=== PATIENT | male | born 1935 | race Caucasian/White ===

== ENCOUNTER 2020-02-20 16:09 | Inpatient (IN) | payer MEDICARE, MEDICAID ==
[~2020-02-20] VITALS: Ht 170.2 cm; Wt 60.3 kg
--- NOTE | 2020-02-20 16:28 | Emergency Room Report ---
History of Present Illness General Chief Complaint: Upper Respiratory Illness Source: Patient Present Illness HPI Is an 84-year-old male sent in from nursing facility after increased fever and difficulty with breathing. Patient reportedly had missed dialysis today. Prior history of end-stage renal disease. He was noted to have some increased confusion. Previous history of dialysis and is normally dialyzed Monday. Patient was sent in from assisted living after increased congestion. He is unsure why is at the hospital. Reportedly at a facility with recent cases of coronavirus. Denies any vomiting. Denies any diarrhea. Denies any current shortness of breath. Reports having generalized weakness and difficulty with walking at baseline. Allergies: Coded Allergies: LATEX (Verified Allergy, Unknown, 02/20/20) Uncoded Allergies: NSAID (Allergy, Unknown, 02/20/20) COVID-19 Screening Contact w/high risk pt: No Recent Travel to affected area: No Experienced COVID-19 symptoms?: No Patient History Past Medical History: see triage record Reviewed Nursing Documentation: PMH: Agreed; PSxH: Agreed Nursing Documentation-PMH Past Medical History: No History, Except For Hx Hypertension: Yes Review of Systems All Other Systems: negative except mentioned in HPI Physical Exam Vital Signs Date Time Temp Pulse Resp B/P (MAP) Pulse Ox O2 Delivery O2 Flow Rate FiO2 02/20/20 16:10 70 22 132/66 (88) 96 Room Air Sp02 EP Interpretation: reviewed, normal General Appearance: normal inspection, well appearing, alert Head: normocephalic, atraumatic ENT: normal ENT inspection, hearing grossly normal, normal voice Neck: normal inspection, full range of motion, supple, no bony tend Respiratory: normal inspection, lungs clear, normal breath sounds, no respiratory distress, no retraction, no wheezing Cardiovascular #1: regular rate, rhythm, no edema Gastrointestinal: normal inspection, normal bowel sounds, non tender, soft, no guarding, no hernia Genitourinary: no CVA tenderness Musculoskeletal: normal inspection, back normal, normal range of motion Neurologic: alert, motor strength/tone normal, responsive, speech normal, normal inspection Psychiatric: normal inspection, judgement/insight normal, mood/affect normal Medical Decision Making Diagnostic Impression: Primary Impression: Suspected 2019 novel coronavirus infection Additional Impressions: ESRD (end stage renal disease) Pacemaker ER Course Patient presented for cough and difficulty with breathing. Differential diagnosis include was not limited to pneumonia, fluid overload, sepsis among others. Because of complexity of patient's case laboratory tests and imaging studies were ordered. Patient was noted to have recent fever as well as nonproductive cough given current symptomatology patient will be admitted to the hospital for further evaluation and treatment. Dr. Tiffanie Jim was contacted for inpatient management Labs Test 02/20/20 17:00 White Blood Count 12.7 K/UL (4.8-10.8) Red Blood Count 4.15 M/UL (4.70-6.10) Hemoglobin 11.9 G/DL (14.2-18.0) Hematocrit 39.2 % (42.0-52.0) Mean Corpuscular Volume 94 FL (80-99) Mean Corpuscular Hemoglobin 28.7 PG (27.0-31.0) Mean Corpuscular Hemoglobin Concent 30.4 G/DL (32.0-36.0) Red Cell Distribution Width 15.7 % (11.6-14.8) Platelet Count 310 K/UL (150-450) Mean Platelet Volume 7.9 FL (6.5-10.1) Neutrophils (%) (Auto) 78.0 % (45.0-75.0) Lymphocytes (%) (Auto) 9.6 % (20.0-45.0) Monocytes (%) (Auto) 8.1 % (1.0-10.0) Eosinophils (%) (Auto) 2.8 % (0.0-3.0) Basophils (%) (Auto) 1.5 % (0.0-2.0) Sodium Level 134 MMOL/L (136-145) Potassium Level 4.5 MMOL/L (3.5-5.1) Chloride Level 99 MMOL/L (98-107) Carbon Dioxide Level 24 MMOL/L (21-32) Anion Gap 11 mmol/L (5-15) Blood Urea Nitrogen 53 mg/dL (7-18) Creatinine 7.4 MG/DL (0.55-1.30) Estimat Glomerular Filtration Rate 7.1 mL/min (>60) Glucose Level 165 MG/DL (74-106) Lactic Acid Level 1.20 mmol/L (0.4-2.0) Calcium Level 9.0 MG/DL (8.5-10.1) Total Bilirubin 0.3 MG/DL (0.2-1.0) Aspartate Amino Transf (AST/SGOT) 32 U/L (15-37) Alanine Aminotransferase (ALT/SGPT) 35 U/L (12-78) Alkaline Phosphatase 103 U/L (46-116) Troponin I 0.022 ng/mL (0.000-0.056) Pro-B-Type Natriuretic Peptide 60480 pg/mL (0-125) Total Protein 7.0 G/DL (6.4-8.2) Albumin 3.1 G/DL (3.4-5.0) Globulin 3.9 g/dL Albumin/Globulin Ratio 0.8 (1.0-2.7) Last Vital Signs Date Time Temp Pulse Resp B/P (MAP) Pulse Ox O2 Delivery O2 Flow Rate FiO2 02/20/20 16:10 70 22 132/66 (88) 96 Room Air Status: unchanged Disposition: ADMITTED INPATIENT Condition: Serious Serafin Bartholomew MD Feb 20, 2020 16:28
[2020-02-20 16:32] VITALS: BP 130/70
--- NOTE | 2020-02-20 16:32 | NUR ---
ED Nurse Note: PT brought in by JON Coronado from [facility] assisted living side for c/o fatigue and cough, sob x 3 days. sp02 is 99% in RA. Temp is 98.4. pt has hemodyalisis T//SAT. Pt did not receive dialysis today. AV shunt to left upper arm. pt is alert x3, hard of hearing.
[2020-02-20 17:07] VITALS: BP 155/83
--- NOTE | 2020-02-20 17:08 | NUR ---
ED Nurse Note: blood sample, swab sample collected and sent to lab
--- NOTE | 2020-02-20 17:11 | NUR ---
ED Nurse Note: pt stated he no longer urinate. ERMD made aware.
[2020-02-20 17:39] LABS: BASOPHILS % (AUTO) 1.5 % (0.0-2.0); EOSINOPHILS % (AUTO) 2.8 % (0.0-3.0); HEMATOCRIT 39.2 % (42.0-52.0); HEMOGLOBIN 11.9 G/DL (14.2-18.0); LYMPHOCYTES % (AUTO) 9.6 % (20.0-45.0); MEAN CORPUSCULAR VOLUME 94 FL (80-99); MONOCYTES % (AUTO) 8.1 % (1.0-10.0); PLATELET COUNT 310 K/UL (150-450); RED BLOOD COUNT 4.15 M/UL (4.70-6.10); RED CELL DISTRIBUTION WIDTH 15.7 % (11.6-14.8); WHITE BLOOD COUNT 12.7 K/UL (4.8-10.8)
--- NOTE | 2020-02-20 17:44 | NUR ---
Arianne joel in EDM - 02/20/20 at 1745 by ZACHARY ED Nurse Note: x ray taken at bedside.
--- NOTE | 2020-02-20 17:45 | NUR ---
ED Nurse Note: x ray taken at bedside.
[2020-02-20 17:52] LABS: ANION GAP 11 mmol/L (5-15); BLOOD UREA NITROGEN 53 mg/dL (7-18); CARBON DIOXIDE 24 MMOL/L (21-32); CHLORIDE 99 MMOL/L (98-107); CREATININE 7.4 MG/DL (0.55-1.30); POTASSIUM 4.5 MMOL/L (3.5-5.1); SODIUM 134 MMOL/L (136-145)
[2020-02-20 18:03] LABS: ALANINE AMINOTRANSFERASE 35 U/L (12-78); ALBUMIN 3.1 G/DL (3.4-5.0); ALBUMIN/GLOBULIN RATIO 0.8 (1.0-2.7); ALKALINE PHOSPHATASE 103 U/L (46-116); ASPARTATE AMINO TRANSFERASE 32 U/L (15-37); BILIRUBIN,TOTAL 0.3 MG/DL (0.2-1.0)
[2020-02-20 19:12] VITALS: BP 142/75
--- NOTE | 2020-02-20 19:12 | NUR ---
ED Nurse Note: pt resting in bed, no acute distress is noted.vss as documented
--- NOTE | 2020-02-20 20:35 | NUR ---
ED Nurse Note: pt taken to CT
--- NOTE | 2020-02-20 20:45 | NUR ---
ED Nurse Note: PT returned back from CT. Report given to TOMMY Granado. endorsed plan of care.
--- NOTE | 2020-02-20 20:46 | NUR ---
ED Nurse Note: Patient resting comfortably with no s/s of acute distress. will continue to monitor for admission and transport to the floor.
--- NOTE | 2020-02-20 20:47 | History and Physical ---
History of Present Illness General Reason for Hospitalization: Upper Respiratory Illness Present Illness HPI 84-year-old male with PMH of ESRD on HD TTS, Parkinson's disease, HTN, ? bradycardia s/p PPM, patient poor historian, history obtained via patient and patient's , Bettye. Patient currently resides at [facility], was noted by to be more confused this a.m., with fevers of 100.5 and cough at his [facility] for which he was stent to [facility] for COVID rule out. Patient apparently missed his dialysis today due to his fever. Per , patient had recent tooth infection which was treated with penicillin about a week ago. Upon exam with patient, patient AAO x2 (person and time), patient denies any F/C, N/V, CP, SOB , abd pain at this time. On admission, elevated WBCs, RR 22, BNP 10,000. Per discussion w/ER physician, pt had exposure of COVID at facility. Patient admitted for further treatment and evaluation. 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 Allergies: Coded Allergies: LATEX (Verified Allergy, Unknown, 02/20/20) Uncoded Allergies: NSAID (Allergy, Unknown, 02/20/20) COVID-19 Screening Contact w/high risk pt: No Recent Travel to affected area: No Experienced COVID-19 symptoms?: No COVID-19 symptoms experienced: Fever (T>100.4F or >38C), Cough Patient History Limited by: age, medical condition History Provided By: Patient, Family Member, Significant Other Healthcare decision maker Resuscitation status Advanced Directive on File Review of Systems Constitutional: Denies: no symptoms, see HPI, chills, sweats, fever, malaise, weakness, other Eye: Denies: no symptoms, see HPI, eye pain, blurred vision, tearing, double vision, nose pain, nose congestion, acuity changes, discharge, other ENT: Denies: no symptoms, see HPI, ear pain, ear discharge, nose pain, nose congestion, throat pain, throat swelling, mouth pain, hearing loss, nasal discharge, other Respiratory: Denies: no symptoms, see HPI, cough, orthopnea, shortness of breath, stridor, wheezing, SLOAN, sputum, other Cardiovascular: Denies: no symptoms, see HPI, chest pain, edema, palpitations, syncope, PND, other Gastrointestinal: Denies: no symptoms, see HPI, abdominal pain, constipation, diarrhea, nausea, vomiting, melena, hematemesis, other Genitourinary: Denies: no symptoms, see HPI, discharge, dysuria, frequency, hematuria, pain, retention, incontinence, urgency, vag bleed/dc, other Musculoskeletal: Denies: no symptoms, see HPI, back pain, gout, joint pain, joint swelling, muscle pain, muscle stiffness, other Endocrine: Denies: no symptoms, see HPI, excessive sweating, flushing, intolerance to temperature, increased thirst, increased urine, unexplained weight loss, other Physical Exam Physical Exam Narrative General: NAD, A&O x 2 (person and time) HEENT: NCAT, EOMi, MMM CV: RRR, 2/6 systolic murmur Pulm: CTAB, No wheezes, rhonchi, or rales, no accessory muscle usage or conversational dyspnea GI: Soft, nontender, nondistended, bowel sounds present Neuro: CN 2-12 grossly intact bilaterally, moves limbs spontaneously Ext: No lower extremity edema bilaterally Skin: no rashes lesions or ulcers Msk: Joints symmetrical in upper extremity and lower extremity bilaterally, no joint swelling. Last 24 Hour Vital Signs Date Time Temp Pulse Resp B/P (MAP) Pulse Ox O2 Delivery O2 Flow Rate FiO2 02/20/20 19:12 98.6 71 19 142/75 99 Room Air 02/20/20 17:07 155/83 02/20/20 16:32 98.4 75 22 130/70 99 Room Air 02/20/20 16:32 75 22 Room Air 02/20/20 16:10 70 22 132/66 (88) 96 Room Air Laboratory Tests Test 02/20/20 17:00 White Blood Count 12.7 K/UL (4.8-10.8) H Red Blood Count 4.15 M/UL (4.70-6.10) L Hemoglobin 11.9 G/DL (14.2-18.0) L Hematocrit 39.2 % (42.0-52.0) L Mean Corpuscular Volume 94 FL (80-99) Mean Corpuscular Hemoglobin 28.7 PG (27.0-31.0) Mean Corpuscular Hemoglobin Concent 30.4 G/DL (32.0-36.0) L Red Cell Distribution Width 15.7 % (11.6-14.8) H Platelet Count 310 K/UL (150-450) Mean Platelet Volume 7.9 FL (6.5-10.1) Neutrophils (%) (Auto) 78.0 % (45.0-75.0) H Lymphocytes (%) (Auto) 9.6 % (20.0-45.0) L Monocytes (%) (Auto) 8.1 % (1.0-10.0) Eosinophils (%) (Auto) 2.8 % (0.0-3.0) Basophils (%) (Auto) 1.5 % (0.0-2.0) D-Dimer 1.75 mg/L FEU (0.00-0.49) H Sodium Level 134 MMOL/L (136-145) L Potassium Level 4.5 MMOL/L (3.5-5.1) Chloride Level 99 MMOL/L (98-107) Carbon Dioxide Level 24 MMOL/L (21-32) Anion Gap 11 mmol/L (5-15) Blood Urea Nitrogen 53 mg/dL (7-18) H Creatinine 7.4 MG/DL (0.55-1.30) H Estimat Glomerular Filtration Rate 7.1 mL/min (>60) Glucose Level 165 MG/DL (74-106) H Lactic Acid Level 1.20 mmol/L (0.4-2.0) Calcium Level 9.0 MG/DL (8.5-10.1) Total Bilirubin 0.3 MG/DL (0.2-1.0) Aspartate Amino Transf (AST/SGOT) 32 U/L (15-37) Alanine Aminotransferase (ALT/SGPT) 35 U/L (12-78) Alkaline Phosphatase 103 U/L (46-116) Troponin I 0.022 ng/mL (0.000-0.056) Pro-B-Type Natriuretic Peptide 62964 pg/mL (0-125) H Total Protein 7.0 G/DL (6.4-8.2) Albumin 3.1 G/DL (3.4-5.0) L Globulin 3.9 g/dL Albumin/Globulin Ratio 0.8 (1.0-2.7) L Microbiology Date/Time Source Procedure Growth Status 02/20/20 19:00 Nasal Nares - Final Complete 02/20/20 19:00 Nasal Nares - Final Complete Height (Feet): 5 Height (Inches): 7.00 Weight (Pounds): 160 Medications Current Medications Medications (Trade) Dose Ordered Sig/Josefina Route PRN Reason Start Time Stop Time Status Last Admin Dose Admin Dextrose (Dextrose 50%) 25 ml Q30M PRN IV Hypoglycemia 02/20/20 19:00 05/20/20 18:59 Dextrose (Dextrose 50%) 50 ml Q30M PRN IV Hypoglycemia 02/20/20 19:00 05/20/20 18:59 Heparin Sodium (Porcine) (Heparin 5000 units/ml) 5,000 units EVERY 12 HOURS SUBQ 02/20/20 21:00 04/05/20 20:59 Assessment/Plan Assessment/Plan: 84-year-old male with PMH of ESRD on HD TTS, Parkinson's disease, HTN, ? bradycardia s/p PPM, admitted for cough/fevers 100.5 at [facility], missed HD today, here for COVID r/o, sepsis work up. Possible COVID exposure at [facility]. #Sepsis #Fevers #Cough #Possible COVID #Acute Metabolic Encephalopathy #elevated D-dimer -admit to tele, droplet precautions -possible 2/2 uremia from missed HD, or infectious causes -WBC 12.7, RR 22, CXR w/ patchy interstitial infiltrates -BNP elevated, 10,733 -Trop 0.022 -COVID pending -obtain CT head -Check TSH -BCx, UCx, SCx pending -elevated d-dimer, may be multifactorial, pt not hypoxic, 99% on RA, will obtain b/l US LE -ID, Dr. Villa, consulted, d/w ID, will start on Plaquenil and azithro -Pulm, Dr. Mendoza consulted #ESRD on HD TTS #Elevated BNP likely 2/2 missed HD -Nephro, Dr. Jim, consulted for HD recs #s/p PPM #elevated BNP likely 2/2 to above #HTN #?h/o afib -cont. to monitor -cont. home amlodipine 5 mg -cont. home amiodarone -Cardio consulted, recs appreciated #Hypothyroidism -Check TSH -cont. home meds, levothyroxine 50 #BPH -cont. home finasteride #Parkinsons Dx #Depression -holding home escitalopram for now -pt not on any meds for PD per medication review -neurology consulted Time spent on encounter: 70 mins, >50% on counseling, coordination of care. Additional 30 mins spent with chart review and family counseling. Spoke w/, Bettye Harden , POC, answered all questions to her satisfaction. Time of note doesn't reflect time of encounter. Demarcus Cottrell M.D. Feb 20, 2020 20:47
[2020-02-20 20:56] VITALS: BP 138/80
--- NOTE | 2020-02-20 21:11 | NUR ---
ED Nurse Note: Jovanelmo went down for CT with echocardiography radiology technologist, will continue to nmonitor for return.
--- NOTE | 2020-02-20 21:21 | Infectious Diseases Prog Note ---
Assessment/Plan Assessment/Plan Full consult dictated: A) 1) possible covid-19 infection 2) pna, sepsis, leukocytosis, hx fevers 3) pmh noted 4) allergies - nkda P) 1) zosyn, vancomycin, hydroxychloroquine 2) azithromycin if QTc ok 3) f/u on covid-19 testing, cultures, labs and imaging 4) thank you Subjective Allergies: Coded Allergies: LATEX (Verified Allergy, Unknown, 02/20/20) Uncoded Allergies: NSAID (Allergy, Unknown, 02/20/20) Objective Vital Signs Last 24 Hour Vital Signs Date Time Temp Pulse Resp B/P (MAP) Pulse Ox O2 Delivery O2 Flow Rate FiO2 02/20/20 20:56 98.6 78 20 138/80 98 Room Air 02/20/20 19:12 98.6 71 19 142/75 99 Room Air 02/20/20 17:07 155/83 02/20/20 16:32 98.4 75 22 130/70 99 Room Air 02/20/20 16:32 75 22 Room Air 02/20/20 16:10 70 22 132/66 (88) 96 Room Air Height (Feet): 5 Height (Inches): 7.00 Weight (Pounds): 160 Microbiology Date/Time Source Procedure Growth Status 02/20/20 19:00 Nasal Nares - Final Complete 02/20/20 19:00 Nasal Nares - Final Complete Laboratory Tests Test 02/20/20 17:00 White Blood Count 12.7 K/UL (4.8-10.8) H Red Blood Count 4.15 M/UL (4.70-6.10) L Hemoglobin 11.9 G/DL (14.2-18.0) L Hematocrit 39.2 % (42.0-52.0) L Mean Corpuscular Volume 94 FL (80-99) Mean Corpuscular Hemoglobin 28.7 PG (27.0-31.0) Mean Corpuscular Hemoglobin Concent 30.4 G/DL (32.0-36.0) L Red Cell Distribution Width 15.7 % (11.6-14.8) H Platelet Count 310 K/UL (150-450) Mean Platelet Volume 7.9 FL (6.5-10.1) Neutrophils (%) (Auto) 78.0 % (45.0-75.0) H Lymphocytes (%) (Auto) 9.6 % (20.0-45.0) L Monocytes (%) (Auto) 8.1 % (1.0-10.0) Eosinophils (%) (Auto) 2.8 % (0.0-3.0) Basophils (%) (Auto) 1.5 % (0.0-2.0) D-Dimer 1.75 mg/L FEU (0.00-0.49) H Sodium Level 134 MMOL/L (136-145) L Potassium Level 4.5 MMOL/L (3.5-5.1) Chloride Level 99 MMOL/L (98-107) Carbon Dioxide Level 24 MMOL/L (21-32) Anion Gap 11 mmol/L (5-15) Blood Urea Nitrogen 53 mg/dL (7-18) H Creatinine 7.4 MG/DL (0.55-1.30) H Estimat Glomerular Filtration Rate 7.1 mL/min (>60) Glucose Level 165 MG/DL (74-106) H Lactic Acid Level 1.20 mmol/L (0.4-2.0) Calcium Level 9.0 MG/DL (8.5-10.1) Total Bilirubin 0.3 MG/DL (0.2-1.0) Aspartate Amino Transf (AST/SGOT) 32 U/L (15-37) Alanine Aminotransferase (ALT/SGPT) 35 U/L (12-78) Alkaline Phosphatase 103 U/L (46-116) Troponin I 0.022 ng/mL (0.000-0.056) Pro-B-Type Natriuretic Peptide 27034 pg/mL (0-125) H Total Protein 7.0 G/DL (6.4-8.2) Albumin 3.1 G/DL (3.4-5.0) L Globulin 3.9 g/dL Albumin/Globulin Ratio 0.8 (1.0-2.7) L Current Medications Medications (Trade) Dose Ordered Sig/Josefina Route PRN Reason Start Time Stop Time Status Last Admin Dose Admin Amiodarone HCl (Cordarone) 200 mg BID ORAL 02/21/20 09:00 05/21/20 08:59 Amlodipine Besylate (Norvasc) 5 mg DAILY ORAL 02/21/20 09:00 03/22/20 08:59 Dextrose (Dextrose 50%) 25 ml Q30M PRN IV Hypoglycemia 02/20/20 19:00 05/20/20 18:59 Dextrose (Dextrose 50%) 50 ml Q30M PRN IV Hypoglycemia 02/20/20 19:00 05/20/20 18:59 Finasteride (Proscar) 5 mg DAILY ORAL 02/21/20 09:00 05/21/20 08:59 Heparin Sodium (Porcine) (Heparin 5000 units/ml) 5,000 units EVERY 12 HOURS SUBQ 02/20/20 21:00 04/05/20 20:59 Levothyroxine Sodium (Synthroid) 50 mcg DAILY IV 02/21/20 09:00 03/22/20 08:59 Sevelamer Carbonate (Renvela) 800 mg TID ORAL 02/21/20 09:00 05/21/20 08:59 Nataliya Villa MD Feb 20, 2020 21:21
--- NOTE | 2020-02-20 21:29 | Diagnostic Imaging Report ---
Indication: Headache Technique: Contiguous 5 mm thick transaxial imaging of the head obtained in a Siemens Sensation [address] scanner. Soft tissue and bone windows generated. Automatic Exposure Control was utilized. Total Dose length Product (DLP): 1028.9mGycm CT Dose Index Volume (CTDIvol): 53.4 mGy Comparison: none Findings: There is moderate prominence of the ventricles, basal cisterns, and cerebral sulci consistent with atrophy. Moderate, nonspecific, white matter hypoattenuation is noted throughout the brain consistent with chronic small vessel disease. There is no midline shift, edema, acute hemorrhage, mass effect, or abnormal extra-axial fluid collections. Bones are unremarkable. There is mucosal thickening within the visualized paranasal sinuses. Impression: No acute intracranial bleed, mass effect or edema. Moderate atrophy of the brain. Evidence of chronic small vessel disease involving white matter tracts. Sinusitis The CT scanner at [facility] is accredited by the [employer] and the scans are performed using dose optimization techniques as appropriate to a performed exam including Automatic Exposure control.
[2020-02-20] MEDS ORDERED: Vancomycin 1.5 GM in NS 275 ML IVPB ONE (22:00)
[2020-02-20] MEDS ORDERED: Zosyn 2.25gm in NS 110ML IVPB SCH (22:00)
--- NOTE | 2020-02-20 22:30 | NUR ---
ED Nurse Note: 1/2 ANTIBIOTICS HUNG. PATIENT REPORTS NO PAIN. WILL CONTINUE TO MONITOR FOR TRANSPORT TO FLOOR.
[2020-02-20] MEDS: Zosyn 2.25gm in NS 110ML IVPB SCH (22:33)
[2020-02-20 22:50] VITALS: BP 156/68
--- NOTE | 2020-02-20 22:52 | NUR ---
ED Nurse Note: REPORT CALLED IN TO [facility].
[2020-02-20] MEDS ORDERED: Vancomycin 1.5gm/NS Premix IVPB ONE (23:00)
[2020-02-20] MEDS ORDERED: MAPAP325 M1 PO (23:10)
[2020-02-20] MEDS ORDERED: RENVELA0.8 GM ORAL (23:10)
[2020-02-20] MEDS ORDERED: NEPHROVITE1 TAB ORAL (23:10)
[2020-02-20] MEDS ORDERED: POLYETHYLENE GL17 GM ORAL (23:10)
[2020-02-20] MEDS ORDERED: MILK OF MA400 MG/51 ORAL (23:10)
[2020-02-20] MEDS ORDERED: AFRIN NASAL SPR30 ML NASAL (23:10)
[2020-02-20] MEDS ORDERED: FINASTERIDE5 MG ORAL (23:10)
[2020-02-20] MEDS ORDERED: AMLODIPINE-ATO1 EAC1 ORAL (23:10)
[2020-02-20] MEDS ORDERED: VITAMIN D33000 UNI1 PO (23:10)
[2020-02-20] MEDS ORDERED: BISACODYL10 M1 RC (23:10)
[2020-02-20] MEDS ORDERED: LEVOTHYROXINE175 MCG ORAL (23:10)
[2020-02-20] MEDS ORDERED: IPRATROPIU0.2 MG/1 M HHN (23:10)
[2020-02-20] MEDS ORDERED: OXANDROLONE2.5 MG PO (23:10)
[2020-02-20] MEDS ORDERED: AMIODARONE HCL100 MG ORAL (23:10)
[2020-02-20] MEDS ORDERED: DEPAKOTE500 MG PO (23:10)
[2020-02-21] VITALS: BP 149/73
--- NOTE | 2020-02-21 00:15 | Consultation ---
DATE OF CONSULTATION: 02/20/2020 INFECTIOUS DISEASE CONSULTATION CONSULTING PHYSICIAN: Nataliya Villa M.D. ATTENDING PHYSICIAN: Tiffanie Jim M.D. REFERRING PHYSICIAN: Catina Cottrell D.O. REASON FOR CONSULTATION: Possible COVID-19 virus infection, pneumonia, sepsis, leukocytosis, history of fevers. CHIEF COMPLAINT: The patient's chief complaint coming into the hospital is possible COVID-19 virus infection, respiratory illness, and pneumonia. HISTORY OF PRESENT ILLNESS: This is an 84-year-old male, who is seen in the emergency room. The patient is COVID-19 virus infection isolation. 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 He also is on amiodarone. He is at risk for arrhythmias. The patient presented to [facility] with confusion and also temperature of 100.5. The patient comes from I believe a [facility] or facility where the patient had exposure to COVID-19. The patient per the records I believe is from the [facility]. Chest x-ray showed patchy interstitial infiltrates, that is in the records. Temperature at the [facility] per the records is 100.5. Infectious Disease consultation is requested. The patient certainly is at risk for other bacterial pneumonia and sepsis with elevated white count and history of fevers. The patient's QTc interval was high. I believe this was 479. The patient will be placed on Zosyn and vancomycin empirically for sepsis and pneumonia. However, with regards to COVID-19 treatment, I will give hydroxychloroquine but avoid azithromycin since the risks outweigh the benefits at this time so there is a possibility of arrhythmias. The patient does have a pacemaker for bradycardia. The patient will be continued on antibiotics, pending workup. MAR was noted. The patient was seen in the emergency room. Case was discussed with Dr. Cottrell and also the emergency room physician. REVIEW OF SYSTEMS: CONSTITUTIONAL: The patient as discussed has history of fevers. He is responsive, but mental status is somewhat confused, but is responsive. As discussed, he had fevers. He has no current chills. HEAD AND NECK: No head pain or neck pain. CARDIAC: No chest pain or pressors. GASTROINTESTINAL: No nausea, vomiting, or diarrhea. GENITOURINARY: I did not see a Koehler. PULMONARY: He comes in with cough. No significant shortness of breath. SKIN: No rash. NEUROLOGIC: No seizures. Generalized fatigue. We cannot assess focal weakness in this patient. PAST MEDICAL HISTORY: The patient's past medical history includes the following. The patient has a past medical history of bradycardia and pacemaker, history of hypertension, Parkinson disease, history of end-stage renal disease, hemodialysis. He resides in an [facility] or Convalescent Home. He is on amiodarone also. He also has history of BPH, hypothyroidism, and depression. ALLERGIES: Include latex and NSAIDs. SOCIAL HISTORY: Negative for smoking, alcohol, or drug abuse. FAMILY HISTORY: Noncontributory. Negative for exposure to tuberculosis or cancer. MEDICATIONS: Upon reviewing the MAR, the patient is on the following medications. He is on Norvasc, amlodipine, Renvela, hydroxychloroquine, finasteride, amiodarone, levothyroxine, vancomycin, Zosyn, heparin, intravenous fluids. Outside medications were noted and reconciliated. PHYSICAL EXAMINATION: VITAL SIGNS: Temperature 98.6, pulse rate 70, respiratory rate 20, blood pressure 138/80, and saturation 98% on room air. The patient per the records has a T-max of 100.5 at the [facility]. The patient is responsive and not a very good historian. HEAD AND NECK: Oral exam, no thrush. Normocephalic. No jugular venous distention. HEART: Regular. No obvious gallop or murmur. ABDOMEN: Soft. Positive bowel sounds. Nontender. LUNGS: Bilateral rhonchi and possible rales. SKIN: No rash. MUSCULOSKELETAL: No effusion. Legs are without cellulitis. PERIPHERAL VASCULAR: No cyanosis or gangrene. GENITOURINARY: He has no Koehler. LINE SITES: Without phlebitis. NEUROLOGIC: Generalized weakness. Alert and responsive. But not a very good historian. LABORATORY DATA: Laboratory data is as follows. White count 12.7 and hemoglobin 11.9. Creatinine 7.4. LFTs were noted. Cultures are pending at this time. Influenza screen is negative. LFTs were unremarkable. Chest x-ray here is pending. CT scan of the head showed no acute abnormality. I believe an outside chest x-ray, I am not sure if it is outside or here, the results here are pending, showed patchy interstitial infiltrates. ASSESSMENT/PLAN: 1. The patient has fevers of 100.5 per the records, cough, altered mental status, and confusion. The patient per the records has an exposure to COVID-19 at the facility and also patchy infiltrate on chest x-ray. At this time, we will continue Zosyn. The patient's differential diagnosis is rule out COVID-19 virus infection with pneumonia and also possible healthcare-acquired pneumonia and certainly at risk for aspiration healthcare-acquired pneumonia and community-acquired pneumonia. The patient could be septic with elevated white count, history of fevers, and altered mental status. At this time, we will continue vancomycin and Zosyn empirically for sepsis, pneumonia, and altered mental status. Also, we will place on hydroxychloroquine for 5 days for the possible COVID-19 infection. I would avoid azithromycin at this time because of the patient's prolonged QTc, it was at 479. The risks outweigh the benefits at this time for azithromycin. Continue antibiotics Zosyn, vancomycin, and hydroxychloroquine and check COVID-19 virus testing, which included nasopharyngeal PCR and also cultures, laboratories, and followup chest x-ray. Await workup at this time. 2. End-stage renal disease, on hemodialysis. 3. Anemia. 4. Parkinson disease. 5. Hypertension. 6. Bradycardia and permanent pacemaker. 7. Hypothyroidism. 8. BPH. 9. Aspiration risk. 10. Hypertension treatment per primary care team. 11. Allergies to latex and NSAIDs. 12. Social history is negative. 13. Family history is noncontributory. 14. MAR is noted. 15. Case was discussed with RN. 16. Case was discussed with Dr. Cottrell. 17. Orders were noted and entered. 18. The patient was seen in the emergency room at [address] Nataliya Villa M.D. DR: HAILEE JOB#: [id number] CC:
[2020-02-21] MEDS: Heparin 5000 units/ml inj SUBQ SCH ×3 (00:36→21:00)
--- NOTE | 2020-02-21 00:36 | NUR ---
NURSE NOTES: Received patient report from TOMMY Granado from ER. Patient was transported to telemetry floor without incident. AOx 2. Patient shows no signs of distress or pain. IV checked, patent and flushed. There are no signs of infiltration, bleeding, or erythema. Bed in the lowest position, call light within reach, bed alarm on, and side rails up x3. Patient is Covid 19 rule out, isolation precautions taken. Will continue plan of care.
[2020-02-21 04:00] VITALS: BP 155/77
[2020-02-21] MEDS: Zosyn 2.25gm in NS 110ML IVPB SCH ×3 (05:13→21:40)
--- NOTE | 2020-02-21 07:29 | NUR ---
HAND-OFF: Report given to TOMMY Myrick. Patient in stable condition. No signs of distress or pain noted at this time. Ensorsed plan of care.
[2020-02-21 07:39] LABS: BASOPHILS % (AUTO) 1.2 % (0.0-2.0); EOSINOPHILS % (AUTO) 3.3 % (0.0-3.0); HEMATOCRIT 38.8 % (42.0-52.0); HEMOGLOBIN 12.6 G/DL (14.2-18.0); LYMPHOCYTES % (AUTO) 9.3 % (20.0-45.0); MEAN CORPUSCULAR VOLUME 91 FL (80-99); MONOCYTES % (AUTO) 7.5 % (1.0-10.0); NEUTROPHILS % (AUTO) 78.7 % (45.0-75.0); PLATELET COUNT 321 K/UL (150-450); RED BLOOD COUNT 4.27 M/UL (4.70-6.10); RED CELL DISTRIBUTION WIDTH 14.2 % (11.6-14.8)
[2020-02-21 08:00] LABS: ALANINE AMINOTRANSFERASE 34 U/L (12-78); ALBUMIN 3.1 G/DL (3.4-5.0); ALBUMIN/GLOBULIN RATIO 0.8 (1.0-2.7); ALKALINE PHOSPHATASE 102 U/L (46-116); ANION GAP 12 mmol/L (5-15); ASPARTATE AMINO TRANSFERASE 33 U/L (15-37); BILIRUBIN,TOTAL 0.4 MG/DL (0.2-1.0); BLOOD UREA NITROGEN 61 mg/dL (7-18); CALCIUM 9.2 MG/DL (8.5-10.1); CARBON DIOXIDE 23 MMOL/L (21-32); CHLORIDE 100 MMOL/L (98-107); POTASSIUM 4.9 MMOL/L (3.5-5.1); SODIUM 135 MMOL/L (136-145)
[2020-02-21 08:30] VITALS: BP 140/80
[2020-02-21] MEDS: Amiodarone 200mg tab ORAL SCH ×2 (09:03→17:22)
--- NOTE | 2020-02-21 09:08 | General Progress Note ---
Assessment/Plan Assessment/Plan: 84-year-old male with PMH of ESRD on HD TTS, Parkinson's disease, HTN, s/p PPM 2 /2 SSS, admitted for cough/fevers 100.5 at [facility], missed HD today, here for COVID r/o, sepsis work up. Possible COVID exposure at [facility]. #Sepsis #Fevers #Cough #Possible COVID #PNA #Acute Toxic Metabolic Encephalopathy #elevated D-dimer #Sinusitis -cont. inpatient medical management, cardiac monitoring, droplet precautions -possible 2/2 uremia from missed HD, or infectious causes -WBC 12.7, RR 22, CXR w/ patchy interstitial infiltrates -BNP elevated, 10,733 -Trop 0.022 >> 0.006 -COVID pending -CT head reviewed, chronic changes, sinusitis -BCx, UCx, SCx pending -elevated d-dimer, may be multifactorial, pt not hypoxic, 99% on RA, b/l US LE ordered, d/w Pulm -ID, Dr. Villa, zosyn, vancomycin, hydroxychloroquine, azithromycin if QTc ok -Pulm, Dr. Mendoza consulted, recs appreciated #ESRD on HD TTS #Elevated BNP likely 2/2 missed HD -Cont. home sevelamer 800mg TID -check PTH/vitD -check ferritin/iron panel -d/w nephro, plan for HD today -Nephro, Dr. Jim, recs appreciated #SSS s/p PPM #elevated BNP likely 2/2 to above #HTN #h/o afib #Aortic stenosis -cont. to monitor QTc -cont. home amlodipine 5 mg -cont. home amiodarone, d/c if QTc >500 -Eliquis 2.5 BID initiated due to chadsvasq -echo ordered -closely monitor respiratory status, daily CXR, daily troponin -Cardio consulted, recs appreciated #Hypothyroidism -TSH 2.971 -cont. home meds, levothyroxine 50 #BPH -cont. home finasteride #Parkinsons Dx #Depression -holding home escitalopram for now -pt not on any meds for PD per medication review -neurology consulted Time spent on encounter: 35 mins, >50% on counseling, coordination of care. Time of note doesn't reflect time of encounter. Subjective Constitutional: Denies: no symptoms, chills, diaphoresis, fever, malaise, weakness, other HEENT: Denies: no symptoms, eye pain, blurred vision, tearing, double vision, ear pain, ear discharge, nose pain, nose congestion, throat pain, throat swelling, mouth pain, mouth swelling, other Cardiovascular: Denies: no symptoms, chest pain, edema, irregular heart rate, lightheadedness, palpitations, syncope, other Respiratory: Denies: no symptoms, cough, orthopnea, shortness of breath, SOB with excertion, SOB at rest, sputum, stridor, wheezing, other Gastrointestinal/Abdominal: Denies: no symptoms, abdomen distended, abdominal pain, black stools, tarry stools, blood in stool, constipated, diarrhea, difficulty swallowing, nausea, poor appetite, poor fluid intake, rectal bleeding , vomiting, other Genitourinary: Denies: no symptoms, burning, discharge, frequency, flank pain, hematuria, incontinence, pain, urgency, other Allergies: Coded Allergies: LATEX (Verified Allergy, Unknown, 02/20/20) Uncoded Allergies: NSAID (Allergy, Unknown, 02/20/20) Subjective Follow-up for sepsis/PNA, metabolic encephalopathy, pending COVID r/o. No acute events overnight, patient denies any pain/cough, patient remains confused. D/w pt's PCP, pt likely has underlying dementia. Objective Last 24 Hour Vital Signs Date Time Temp Pulse Resp B/P (MAP) Pulse Ox O2 Delivery O2 Flow Rate FiO2 02/21/20 09:03 71 140/80 02/21/20 08:30 97.0 71 140/80 (100) 95 02/21/20 04:00 70 02/21/20 04:00 97.0 71 20 155/77 (103) 95 02/21/20 00:36 Room Air 02/21/20 00:00 97.9 70 20 149/73 (98) 97 02/21/20 00:00 70 02/20/20 23:17 98.6 70 18 156/68 97 Room Air 02/20/20 22:50 98.6 70 18 156/68 97 Room Air 02/20/20 20:56 98.6 78 20 138/80 98 Room Air 02/20/20 19:12 98.6 71 19 142/75 99 Room Air 02/20/20 17:07 155/83 02/20/20 16:32 98.4 75 22 130/70 99 Room Air 02/20/20 16:32 75 22 Room Air 02/20/20 16:10 70 22 132/66 (88) 96 Room Air Laboratory Tests 02/20/20 17:00: White Blood Count 12.7H, Red Blood Count 4.15L, Hemoglobin 11.9L, Hematocrit 39.2L, Mean Corpuscular Volume 94, Mean Corpuscular Hemoglobin 28.7, Mean Corpuscular Hemoglobin Concent 30.4L, Red Cell Distribution Width 15.7H, Platelet Count 310, Mean Platelet Volume 7.9, Neutrophils (%) (Auto) 78.0H, Lymphocytes (%) (Auto) 9.6L, Monocytes (%) (Auto) 8.1, Eosinophils (%) (Auto) 2.8, Basophils (%) (Auto) 1.5, D-Dimer 1.75H, Sodium Level 134L, Potassium Level 4.5, Chloride Level 99, Carbon Dioxide Level 24, Anion Gap 11, Blood Urea Nitrogen 53H, Creatinine 7.4H, Estimat Glomerular Filtration Rate 7.1, Glucose Level 165H, Lactic Acid Level 1.20, Calcium Level 9.0, Total Bilirubin 0.3, Aspartate Amino Transf (AST/SGOT) 32, Alanine Aminotransferase (ALT/SGPT) 35, Alkaline Phosphatase 103, Troponin I 0.022, Pro-B-Type Natriuretic Peptide 27209I, Total Protein 7.0, Albumin 3.1L, Globulin 3.9, Albumin/Globulin Ratio 0.8L, Thyroid Stimulating Hormone (TSH) 2.971 02/21/20 05:39: White Blood Count 14.0H, Red Blood Count 4.27L, Hemoglobin 12.6L, Hematocrit 38.8L, Mean Corpuscular Volume 91, Mean Corpuscular Hemoglobin 29.5, Mean Corpuscular Hemoglobin Concent 32.6, Red Cell Distribution Width 14.2, Platelet Count 321, Mean Platelet Volume 7.3, Neutrophils (%) (Auto) 78.7H, Lymphocytes ( %) (Auto) 9.3L, Monocytes (%) (Auto) 7.5, Eosinophils (%) (Auto) 3.3H, Basophils (%) (Auto) 1.2, Sodium Level 135L, Potassium Level 4.9, Chloride Level 100, Carbon Dioxide Level 23, Anion Gap 12, Blood Urea Nitrogen 61H, Creatinine 8.0H, Estimat Glomerular Filtration Rate 6.4, Glucose Level 91, Calcium Level 9.2, Total Bilirubin 0.4, Aspartate Amino Transf (AST/SGOT) 33, Alanine Aminotransferase (ALT/SGPT) 34, Alkaline Phosphatase 102, Total Protein 7.0, Albumin 3.1L, Globulin 3.9, Albumin/Globulin Ratio 0.8L Height (Feet): 5 Height (Inches): 7.00 Weight (Pounds): 160 Objective General: NAD, A&O x 2, confused HEENT: NCAT, EOMi, MMM CV: RRR, 2/6 systolic MMR Pulm: CTAB, No wheezes, rhonchi, or rales, no accessory muscle usage or conversational dyspnea GI: Soft, nontender, nondistended, bowel sounds present Neuro: CN 2-12 grossly intact bilaterally, no focal signs. AO x2 self and time only Ext: No lower extremity edema bilaterally, LUE fistula +bruit Skin: no rashes lesions or ulcers Demarcus Cottrell M.D. Feb 21, 2020 09:08
--- NOTE | 2020-02-21 10:00 | Consultation ---
DATE OF CONSULTATION: 02/21/2020 PULMONARY CONSULTATION HISTORY OF PRESENT ILLNESS: The patient is an 84-year-old male who was admitted to the hospital with an upper respiratory infection. The patient was also hypoxic. The patient has a previous history of ESRD on dialysis, also has underlying Parkinson disease and hypertension as well as permanent pacemaker. He resides at a nursing facility and was noted to be more confused and also febrile. He also was found to have a cough. He was admitted to [facility] for possibility of COVID-19. He also missed his dialysis. The patient's reports that she has been treated recently with antibiotics for tooth infection. The patient cannot provide any further history. PAST MEDICAL HISTORY: ESRD on dialysis, Parkinson disease, hypertension, permanent pacemaker. SOCIAL HISTORY: [facility] resident. No history of alcohol or tobacco usage. PAST SURGICAL HISTORY: Left upper extremity fistula and permanent pacemaker. He has also had a previous pancreatic cyst removal. ALLERGIES: To latex and NSAIDs HOME MEDICATIONS: Reviewed and reconciled in chart. REVIEW OF SYSTEMS: Unreliable. PHYSICAL EXAMINATION: GENERAL: This is an 84-year-old male. VITAL SIGNS: Blood pressure 140/80, heart rate 74, respiratory rate 20, O2 saturation 97% on room air. HEENT: Unremarkable. CHEST: Diminished breath sounds bilaterally with normal heart sounds. ABDOMEN: Soft. EXTREMITIES: There is no edema. Fistula as noted. LABORATORY DATA: Lab testing shows white count 92508, hemoglobin of 12.6. Creatinine of 8, sodium 135. Coags are negative. Microbiology negative for influenza A and B. IMAGING STUDIES: CT of the head was obtained, which was essentially unremarkable. It also noted the patient has high QTc interval. He has been started on Zosyn, vancomycin. Chest x-ray have not been able to review. Outside chest x-ray, however, shown patchy infiltrates. IMPRESSION: 1. Fever, high-risk for COVID-19. 2. ESRD on dialysis. 3. Leukocytosis. 4. Elevated D-dimer. 5. Parkinson's. 6. Permanent pacemaker. DISCUSSION: The patient is at high risk for COVID-19. At this time, I agree with the use of empiric antibiotics. We will recommend duplex lower extremity to rule out DVT. We will follow up on chest x-ray. Agree with empiric antibiotics as well as Plaquenil. 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 Current saturations are adequate. Hiro Mendoza M.D. DR: Anu JOB#: [id number] CC:
--- NOTE | 2020-02-21 10:03 | Consultation ---
History of Present Illness General Date patient seen: Feb 21, 2020 Chief Complaint: Upper Respiratory Illness Present Illness HPI This is a 84 year old male with past medical history of ESRD on HD TTS, Parkinson's disease, HTN, SSS s/p PPM, patient poor historian was sent from [facility] living facility with worsening confusion, cough, chills and low grade fevers. He missed HD yesterday as he was sent to the ED for the above complaints. No abdominal pain, nausea, emesis. On presentation he was noted to have elevated WBC and chest xray notable for vascular congestion Allergies: Coded Allergies: LATEX (Verified Allergy, Unknown, 02/20/20) Uncoded Allergies: NSAID (Allergy, Unknown, 02/20/20) Medication History Scheduled Amiodarone Hcl (Amiodarone Hcl), 200 MG ORAL EVERY 8 HOURS, (Reported) Amlodipine/Atorvastatin 5-40 Mg (Amlodipine-Atorvast 5-40 Mg), 5 TAB ORAL DAILY, (Reported) Divalproex Sodium (Depakote), 500 MG PO BID, (Reported) Finasteride (Finasteride), 5 MG ORAL DAILY, (Reported) Levothyroxine Sodium (Levothyroxine Sodium), 50 MCG ORAL DAILY, (Reported) Magnesium Hydroxide* (Milk Of Magnesia*), 30 ML ORAL DAILY, (Reported) Oxymetazoline HCl (Afrin), 2 SPRAY NASAL TWICE A DAY, (Reported) Sevelamer Carbonate* (Renvela*), 800 MG ORAL THREE TIMES A DAY, (Reported) Vitamin B Cmplx/Vit C/Folic AC (Nephro-Deng Tablet), 1 TAB ORAL DAILY, (Reported ) Scheduled PRN Ipratropium [place] 0.5MG/2.5ML (Ipratropium [place] 0.5MG/2.5ML), 0.5 MG HHN Q6H PRN for Shortness of Breath, (Reported) Polyethylene Glycol 3350* (Polyethylene Glycol 3350*), 17 GM ORAL BEDTIME PRN for Constipation, (Reported) Miscellaneous Medications Acetaminophen (Mapap), 325 MG PO, (Reported) Bisacodyl (Bisacodyl), 10 MG RC, (Reported) Cholecalciferol (Vitamin D3) (Vitamin D3), 1,000 UNIT PO, (Reported) Oxandrolone (Oxandrolone), 2.5 MG PO, (Reported) Patient History Healthcare decision maker Resuscitation status Full Code Advanced Directive on File Review of Systems All Other Systems: negative except mentioned in HPI Physical Exam General Appearance: WD/WN, no apparent distress Lines, tubes and drains: peripheral, other - LUE AVF HEENT: normocephalic, atraumatic Neck: non-tender, normal alignment Respiratory/Chest: lungs clear, normal breath sounds Cardiovascular/Chest: normal rate, regular rhythm Abdomen: normal bowel sounds, non tender Extremities: non-tender Skin Exam: normal pigmentation, warm/dry Neurologic: alert Last 24 Hour Vital Signs Date Time Temp Pulse Resp B/P (MAP) Pulse Ox O2 Delivery O2 Flow Rate FiO2 02/21/20 09:03 71 140/80 02/21/20 08:30 97.0 71 20 140/80 (100) 95 02/21/20 04:00 70 02/21/20 04:00 97.0 71 20 155/77 (103) 95 02/21/20 00:36 Room Air 02/21/20 00:00 97.9 70 20 149/73 (98) 97 02/21/20 00:00 70 02/20/20 23:17 98.6 70 18 156/68 97 Room Air 02/20/20 22:50 98.6 70 18 156/68 97 Room Air 02/20/20 20:56 98.6 78 20 138/80 98 Room Air 02/20/20 19:12 98.6 71 19 142/75 99 Room Air 02/20/20 17:07 155/83 02/20/20 16:32 98.4 75 22 130/70 99 Room Air 02/20/20 16:32 75 22 Room Air 02/20/20 16:10 70 22 132/66 (88) 96 Room Air Intake and Output 02/20/20 02/21/20 19:00 07:00 # Bowel Movements 1 Laboratory Tests Test 02/20/20 17:00 02/21/20 05:39 White Blood Count 12.7 K/UL (4.8-10.8) H 14.0 K/UL (4.8-10.8) H Red Blood Count 4.15 M/UL (4.70-6.10) L 4.27 M/UL (4.70-6.10) L Hemoglobin 11.9 G/DL (14.2-18.0) L 12.6 G/DL (14.2-18.0) L Hematocrit 39.2 % (42.0-52.0) L 38.8 % (42.0-52.0) L Mean Corpuscular Volume 94 FL (80-99) 91 FL (80-99) Mean Corpuscular Hemoglobin 28.7 PG (27.0-31.0) 29.5 PG (27.0-31.0) Mean Corpuscular Hemoglobin Concent 30.4 G/DL (32.0-36.0) L 32.6 G/DL (32.0-36.0) Red Cell Distribution Width 15.7 % (11.6-14.8) H 14.2 % (11.6-14.8) Platelet Count 310 K/UL (150-450) 321 K/UL (150-450) Mean Platelet Volume 7.9 FL (6.5-10.1) 7.3 FL (6.5-10.1) Neutrophils (%) (Auto) 78.0 % (45.0-75.0) H 78.7 % (45.0-75.0) H Lymphocytes (%) (Auto) 9.6 % (20.0-45.0) L 9.3 % (20.0-45.0) L Monocytes (%) (Auto) 8.1 % (1.0-10.0) 7.5 % (1.0-10.0) Eosinophils (%) (Auto) 2.8 % (0.0-3.0) 3.3 % (0.0-3.0) H Basophils (%) (Auto) 1.5 % (0.0-2.0) 1.2 % (0.0-2.0) D-Dimer 1.75 mg/L FEU (0.00-0.49) H Sodium Level 134 MMOL/L (136-145) L 135 MMOL/L (136-145) L Potassium Level 4.5 MMOL/L (3.5-5.1) 4.9 MMOL/L (3.5-5.1) Chloride Level 99 MMOL/L (98-107) 100 MMOL/L (98-107) Carbon Dioxide Level 24 MMOL/L (21-32) 23 MMOL/L (21-32) Anion Gap 11 mmol/L (5-15) 12 mmol/L (5-15) Blood Urea Nitrogen 53 mg/dL (7-18) H 61 mg/dL (7-18) H Creatinine 7.4 MG/DL (0.55-1.30) H 8.0 MG/DL (0.55-1.30) H Estimat Glomerular Filtration Rate 7.1 mL/min (>60) 6.4 mL/min (>60) Glucose Level 165 MG/DL (74-106) H 91 MG/DL (74-106) Lactic Acid Level 1.20 mmol/L (0.4-2.0) Calcium Level 9.0 MG/DL (8.5-10.1) 9.2 MG/DL (8.5-10.1) Total Bilirubin 0.3 MG/DL (0.2-1.0) 0.4 MG/DL (0.2-1.0) Aspartate Amino Transf (AST/SGOT) 32 U/L (15-37) 33 U/L (15-37) Alanine Aminotransferase (ALT/SGPT) 35 U/L (12-78) 34 U/L (12-78) Alkaline Phosphatase 103 U/L (46-116) 102 U/L (46-116) Troponin I 0.022 ng/mL (0.000-0.056) Pending Pro-B-Type Natriuretic Peptide 57922 pg/mL (0-125) H Total Protein 7.0 G/DL (6.4-8.2) 7.0 G/DL (6.4-8.2) Albumin 3.1 G/DL (3.4-5.0) L 3.1 G/DL (3.4-5.0) L Globulin 3.9 g/dL 3.9 g/dL Albumin/Globulin Ratio 0.8 (1.0-2.7) L 0.8 (1.0-2.7) L Thyroid Stimulating Hormone (TSH) 2.971 uiU/mL (0.358-3.740) Microbiology Date/Time Source Procedure Growth Status 02/20/20 19:00 Nasal Nares - Final Complete 02/20/20 19:00 Nasal Nares - Final Complete Height (Feet): 5 Height (Inches): 7.00 Weight (Pounds): 160 Medications Current Medications Medications (Trade) Dose Ordered Sig/Josefina Route PRN Reason Start Time Stop Time Status Last Admin Dose Admin Amiodarone HCl (Cordarone) 200 mg BID ORAL 02/21/20 09:00 05/21/20 08:59 02/21/20 09:03 Amlodipine Besylate (Norvasc) 5 mg DAILY ORAL 02/21/20 09:00 03/22/20 08:59 02/21/20 09:03 Dextrose (Dextrose 50%) 25 ml Q30M PRN IV Hypoglycemia 02/20/20 19:00 05/20/20 18:59 Dextrose (Dextrose 50%) 50 ml Q30M PRN IV Hypoglycemia 02/20/20 19:00 05/20/20 18:59 Finasteride (Proscar) 5 mg DAILY ORAL 02/21/20 09:00 05/21/20 08:59 02/21/20 09:03 Heparin Sodium (Porcine) (Heparin 5000 units/ml) 5,000 units EVERY 12 HOURS SUBQ 02/20/20 21:00 04/05/20 20:59 02/21/20 09:03 Hydroxychloroquine Sulfate (Plaquenil) 200 mg BID ORAL 02/21/20 18:00 02/25/20 09:01 Levothyroxine Sodium (Synthroid) 50 mcg DAILY IV 02/21/20 09:00 03/22/20 08:59 02/21/20 09:09 Piperacillin Sod/ Tazobactam Sod 2.25 gm/Sodium Chloride 110 ml @ 220 mls/hr Q8HR IVPB 02/20/20 22:00 02/27/20 21:59 02/21/20 05:13 Sevelamer Carbonate (Renvela) 800 mg TID ORAL 02/21/20 09:00 05/21/20 08:59 02/21/20 09:03 Vancomycin HCl (Vanco rx to dose) 1 ea DAILY PRN MISC Per rx protocol 02/20/20 21:15 03/21/20 21:14 Assessment/Plan Diagnosis [place] I: #ESRD on HD TTS via LUE AVF- missed HD on 02/19 #sepsis, cough, fevers, r/o covid 19 #Toxic metabolic encephalopathy # Parkinson's disease #HTN # SSS s/p PPM #hypothyroidism - HD today - ID and pulm consulted - abx per ID- vancomauriciosyn, Plaquenil - check PTH/vitD - sevelamer 800mg TID - check ferritin/iron panel - continue amlodipine 5mg daily - continue levothyroxine 50 mcg daily - continue amiodarone 200mg daily Tiffanie Jim M.D. Feb 21, 2020 10:03
--- NOTE | 2020-02-21 10:36 | Diagnostic Imaging Report ---
Indication: Dyspnea Comparison: None A single view chest radiograph was obtained. Findings: There is a linear density oriented horizontally in the right midlung likely atelectasis, scarring or could possibly be a small fluid within the minor fissure. Pulmonary vascularity is mildly prominent as is interstitium within both lungs. Lung volumes are low. Heart size is normal. Aorta is calcified. Bones are osteopenic. Pacemaker noted. Cholecystectomy clips are present in the right upper quadrant abdomen. IMPRESSION: Suspected mild pulmonary vascular congestion. Correlate clinically Atelectasis versus scarring right midlung.
--- NOTE | 2020-02-21 11:41 | Consultation ---
History of Present Illness General Date patient seen: Feb 21, 2020 Time patient seen: 11:33 Chief Complaint: Upper Respiratory Illness Present Illness HPI PT brought in by JON Coronado from [facility] for c/o fatigue and cough, sob x 3 days. sp02 is 99% in RA. Temp is 98.4. pt has hemodyalisis T//MON. Pt did not receive dialysis today. AV shunt to left upper arm. He has hx of ESRD on HD T//S, Parkinson dementia, HTN, bradycardia s/p PPM. Patient with AMS confusion fever cough and referred for COVID evaluation due to positive exposure at facility. Allergies: Coded Allergies: LATEX (Verified Allergy, Unknown, 02/20/20) Uncoded Allergies: NSAID (Allergy, Unknown, 02/20/20) Medication History Scheduled Amiodarone Hcl (Amiodarone Hcl), 200 MG ORAL EVERY 8 HOURS, (Reported) Amlodipine/Atorvastatin 5-40 Mg (Amlodipine-Atorvast 5-40 Mg), 5 TAB ORAL DAILY, (Reported) Divalproex Sodium (Depakote), 500 MG PO BID, (Reported) Finasteride (Finasteride), 5 MG ORAL DAILY, (Reported) Levothyroxine Sodium (Levothyroxine Sodium), 50 MCG ORAL DAILY, (Reported) Magnesium Hydroxide* (Milk Of Magnesia*), 30 ML ORAL DAILY, (Reported) Oxymetazoline HCl (Afrin), 2 SPRAY NASAL TWICE A DAY, (Reported) Sevelamer Carbonate* (Renvela*), 800 MG ORAL THREE TIMES A DAY, (Reported) Vitamin B Cmplx/Vit C/Folic AC (Nephro-Deng Tablet), 1 TAB ORAL DAILY, (Reported ) Scheduled PRN Ipratropium Beals 0.5MG/2.5ML (Ipratropium Beals 0.5MG/2.5ML), 0.5 MG HHN Q6H PRN for Shortness of Breath, (Reported) Polyethylene Glycol 3350* (Polyethylene Glycol 3350*), 17 GM ORAL BEDTIME PRN for Constipation, (Reported) Miscellaneous Medications Acetaminophen (Mapap), 325 MG PO, (Reported) Bisacodyl (Bisacodyl), 10 MG RC, (Reported) Cholecalciferol (Vitamin D3) (Vitamin D3), 1,000 UNIT PO, (Reported) Oxandrolone (Oxandrolone), 2.5 MG PO, (Reported) Patient History Healthcare decision maker Resuscitation status Full Code Advanced Directive on File Review of Systems Constitutional: Reports: fever Eye: Reports: no symptoms ENT: Reports: no symptoms Respiratory: Reports: shortness of breath Genitourinary: Reports: no symptoms Musculoskeletal: Reports: no symptoms Skin: Reports: no symptoms Psychiatric: Reports: no symptoms Neurological: Reports: no symptoms Endocrine: Reports: no symptoms Hematologic/Lymphatic: Reports: no symptoms Physical Exam General Appearance: no apparent distress, alert Lines, tubes and drains: peripheral HEENT: atraumatic, anicteric, mucous membranes moist, PERRL Neck: non-tender, normal alignment, supple, abnormal alignment Respiratory/Chest: chest wall non-tender, accessory muscle use, crackles/rales Cardiovascular/Chest: normal peripheral pulses, normal rate, regular rhythm Abdomen: normal bowel sounds, non tender, soft, no organomegaly, no mass Extremities: normal range of motion, non-tender, normal inspection, no calf tenderness, normal capillary refill, non-pitting Skin Exam: normal pigmentation, warm/dry, cyanotic Neurologic: recruiting consultant II-XII grossly normal, no motor/sensory deficits, normal mood/ affect Last 24 Hour Vital Signs Date Time Temp Pulse Resp B/P (MAP) Pulse Ox O2 Delivery O2 Flow Rate FiO2 02/21/20 09:03 71 140/80 02/21/20 09:00 Room Air 02/21/20 08:30 97.0 71 20 140/80 (100) 95 02/21/20 08:00 70 02/21/20 04:00 70 02/21/20 04:00 97.0 71 20 155/77 (103) 95 02/21/20 00:36 Room Air 02/21/20 00:00 97.9 70 20 149/73 (98) 97 02/21/20 00:00 70 02/20/20 23:17 98.6 70 18 156/68 97 Room Air 02/20/20 22:50 98.6 70 18 156/68 97 Room Air 02/20/20 20:56 98.6 78 20 138/80 98 Room Air 02/20/20 19:12 98.6 71 19 142/75 99 Room Air 02/20/20 17:07 155/83 02/20/20 16:32 98.4 75 22 130/70 99 Room Air 02/20/20 16:32 75 22 Room Air 02/20/20 16:10 70 22 132/66 (88) 96 Room Air Intake and Output 02/20/20 02/21/20 19:00 07:00 # Bowel Movements 1 Laboratory Tests Test 02/20/20 17:00 02/21/20 05:39 White Blood Count 12.7 K/UL (4.8-10.8) H 14.0 K/UL (4.8-10.8) H Red Blood Count 4.15 M/UL (4.70-6.10) L 4.27 M/UL (4.70-6.10) L Hemoglobin 11.9 G/DL (14.2-18.0) L 12.6 G/DL (14.2-18.0) L Hematocrit 39.2 % (42.0-52.0) L 38.8 % (42.0-52.0) L Mean Corpuscular Volume 94 FL (80-99) 91 FL (80-99) Mean Corpuscular Hemoglobin 28.7 PG (27.0-31.0) 29.5 PG (27.0-31.0) Mean Corpuscular Hemoglobin Concent 30.4 G/DL (32.0-36.0) L 32.6 G/DL (32.0-36.0) Red Cell Distribution Width 15.7 % (11.6-14.8) H 14.2 % (11.6-14.8) Platelet Count 310 K/UL (150-450) 321 K/UL (150-450) Mean Platelet Volume 7.9 FL (6.5-10.1) 7.3 FL (6.5-10.1) Neutrophils (%) (Auto) 78.0 % (45.0-75.0) H 78.7 % (45.0-75.0) H Lymphocytes (%) (Auto) 9.6 % (20.0-45.0) L 9.3 % (20.0-45.0) L Monocytes (%) (Auto) 8.1 % (1.0-10.0) 7.5 % (1.0-10.0) Eosinophils (%) (Auto) 2.8 % (0.0-3.0) 3.3 % (0.0-3.0) H Basophils (%) (Auto) 1.5 % (0.0-2.0) 1.2 % (0.0-2.0) D-Dimer 1.75 mg/L FEU (0.00-0.49) H Sodium Level 134 MMOL/L (136-145) L 135 MMOL/L (136-145) L Potassium Level 4.5 MMOL/L (3.5-5.1) 4.9 MMOL/L (3.5-5.1) Chloride Level 99 MMOL/L (98-107) 100 MMOL/L (98-107) Carbon Dioxide Level 24 MMOL/L (21-32) 23 MMOL/L (21-32) Anion Gap 11 mmol/L (5-15) 12 mmol/L (5-15) Blood Urea Nitrogen 53 mg/dL (7-18) H 61 mg/dL (7-18) H Creatinine 7.4 MG/DL (0.55-1.30) H 8.0 MG/DL (0.55-1.30) H Estimat Glomerular Filtration Rate 7.1 mL/min (>60) 6.4 mL/min (>60) Glucose Level 165 MG/DL (74-106) H 91 MG/DL (74-106) Lactic Acid Level 1.20 mmol/L (0.4-2.0) Calcium Level 9.0 MG/DL (8.5-10.1) 9.2 MG/DL (8.5-10.1) Total Bilirubin 0.3 MG/DL (0.2-1.0) 0.4 MG/DL (0.2-1.0) Aspartate Amino Transf (AST/SGOT) 32 U/L (15-37) 33 U/L (15-37) Alanine Aminotransferase (ALT/SGPT) 35 U/L (12-78) 34 U/L (12-78) Alkaline Phosphatase 103 U/L (46-116) 102 U/L (46-116) Troponin I 0.022 ng/mL (0.000-0.056) 0.006 ng/mL (0.000-0.056) Pro-B-Type Natriuretic Peptide 27648 pg/mL (0-125) H Total Protein 7.0 G/DL (6.4-8.2) 7.0 G/DL (6.4-8.2) Albumin 3.1 G/DL (3.4-5.0) L 3.1 G/DL (3.4-5.0) L Globulin 3.9 g/dL 3.9 g/dL Albumin/Globulin Ratio 0.8 (1.0-2.7) L 0.8 (1.0-2.7) L Thyroid Stimulating Hormone (TSH) 2.971 uiU/mL (0.358-3.740) Microbiology Date/Time Source Procedure Growth Status 02/20/20 19:00 Nasal Nares - Final Complete 02/20/20 19:00 Nasal Nares - Final Complete Height (Feet): 5 Height (Inches): 7.00 Weight (Pounds): 160 Medications Current Medications Medications (Trade) Dose Ordered Sig/Josefina Route PRN Reason Start Time Stop Time Status Last Admin Dose Admin Amiodarone HCl (Cordarone) 200 mg BID ORAL 02/21/20 09:00 05/21/20 08:59 02/21/20 09:03 Amlodipine Besylate (Norvasc) 5 mg DAILY ORAL 02/21/20 09:00 03/22/20 08:59 02/21/20 09:03 Dextrose (Dextrose 50%) 25 ml Q30M PRN IV Hypoglycemia 02/20/20 19:00 05/20/20 18:59 Dextrose (Dextrose 50%) 50 ml Q30M PRN IV Hypoglycemia 02/20/20 19:00 05/20/20 18:59 Finasteride (Proscar) 5 mg DAILY ORAL 02/21/20 09:00 05/21/20 08:59 02/21/20 09:03 Heparin Sodium (Porcine) (Heparin 5000 units/ml) 5,000 units EVERY 12 HOURS SUBQ 02/20/20 21:00 04/05/20 20:59 02/21/20 09:03 Hydroxychloroquine Sulfate (Plaquenil) 200 mg BID ORAL 02/21/20 18:00 02/25/20 09:01 Levothyroxine Sodium (Synthroid) 50 mcg DAILY IV 02/21/20 09:00 03/22/20 08:59 02/21/20 09:09 Piperacillin Sod/ Tazobactam Sod 2.25 gm/Sodium Chloride 110 ml @ 220 mls/hr Q8HR IVPB 02/20/20 22:00 02/27/20 21:59 02/21/20 05:13 Sevelamer Carbonate (Renvela) 800 mg TID ORAL 02/21/20 09:00 05/21/20 08:59 02/21/20 09:03 Vancomycin HCl (Vanco rx to dose) 1 ea DAILY PRN MISC Per rx protocol 02/20/20 21:15 03/21/20 21:14 Assessment/Plan Status: stable Assessment/Plan: #ESRD on HD TTS via LUE AVF- missed HD on 02/19 #sepsis, cough, fevers, r/o covid 19 #Toxic metabolic encephalopathy # Parkinson's disease #HTN # SSS s/p PPM #hypothyroidism Monitor on telemetry for prolonged QT Daily EKG Continue Hydroxychloroquine Avoid Azithromycin at this time, goal QTC <450 Monitor and replete electrolytes Continue beta blockers Continue amlodipine for hypertension Continue amiodarone but d/c if QTC >500 Initiate anticoagulation for AFIB given elevated CHADS score, eliquis 2.5 mg BID Echocardiogram re elevated BNP Closely monitor respiratory status, daily CXR, daily troponin Evaluate for PE Ricky Maciel MD Feb 21, 2020 11:41
[2020-02-21 12:00] VITALS: BP 130/80
--- NOTE | 2020-02-21 12:15 | NUR ---
CASE MANAGEMENT:REVIEW 84 YR OLD MALE BIBA FROM [facility] CC; COUGHING AND FEVER (100.5) X3 DAYS PMH: ESRD ON HD SI: SUSPECTED COVID 19. PACEMAKER 98.4 132/66 70 22 96% ON RA WBC+12.7 BUN+53 CR+7.4 IS: IV VANCOMYCIN X1 BLOOD CX CHEST XRAY : TO TELEMETRY IS: PLAQUENIL PO BID IV ZOSYN Q8HRS HEPARIN SQ Q12 IV SYNTHROID QD AMIODARONE PO BID *INTERQUAL CRITERIA MET
--- NOTE | 2020-02-21 13:23 | Neurology Progress Note ---
Interim History Interim History Interim History 84-year-old male with PMH of ESRD on HD TTS, Parkinson's disease, HTN, ? bradycardia s/p PPM, patient poor historian, history obtained via patient and patient's , Bettye. Patient currently resides at [facility], was noted by to be more confused this a.m., with fevers of 100.5 and cough at his [facility] for which he was stent to [facility] for COVID rule out. Patient apparently missed his dialysis today due to his fever. Per , patient had recent tooth infection which was treated with penicillin about a week ago. Upon exam with patient, patient AAO x2 (person and time), patient denies any F/C, N/V, CP, SOB , abd pain at this time. On admission, elevated WBCs, RR 22, BNP 10,000. Per discussion w/ER physician, pt had exposure of COVID at facility. Patient admitted for further treatment and evaluation. more alert, undergoing HD, calm and sleeping PMH: ESRD on HD TTS, Parkinson's disease, HTN, ?bradycardia s/p PPM. 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 Review of Systems All Systems: reviewed and negative except above Objective Physical Exam Last Vital Signs Date Time Temp Pulse Resp B/P (MAP) Pulse Ox O2 Delivery O2 Flow Rate FiO2 02/21/20 12:00 97.0 70 20 130/80 (97) 95 02/21/20 09:00 Room Air Laboratory Tests Test 02/20/20 17:00 02/21/20 05:39 White Blood Count 12.7 K/UL (4.8-10.8) H 14.0 K/UL (4.8-10.8) H Red Blood Count 4.15 M/UL (4.70-6.10) L 4.27 M/UL (4.70-6.10) L Hemoglobin 11.9 G/DL (14.2-18.0) L 12.6 G/DL (14.2-18.0) L Hematocrit 39.2 % (42.0-52.0) L 38.8 % (42.0-52.0) L Mean Corpuscular Volume 94 FL (80-99) 91 FL (80-99) Mean Corpuscular Hemoglobin 28.7 PG (27.0-31.0) 29.5 PG (27.0-31.0) Mean Corpuscular Hemoglobin Concent 30.4 G/DL (32.0-36.0) L 32.6 G/DL (32.0-36.0) Red Cell Distribution Width 15.7 % (11.6-14.8) H 14.2 % (11.6-14.8) Platelet Count 310 K/UL (150-450) 321 K/UL (150-450) Mean Platelet Volume 7.9 FL (6.5-10.1) 7.3 FL (6.5-10.1) Neutrophils (%) (Auto) 78.0 % (45.0-75.0) H 78.7 % (45.0-75.0) H Lymphocytes (%) (Auto) 9.6 % (20.0-45.0) L 9.3 % (20.0-45.0) L Monocytes (%) (Auto) 8.1 % (1.0-10.0) 7.5 % (1.0-10.0) Eosinophils (%) (Auto) 2.8 % (0.0-3.0) 3.3 % (0.0-3.0) H Basophils (%) (Auto) 1.5 % (0.0-2.0) 1.2 % (0.0-2.0) D-Dimer 1.75 mg/L FEU (0.00-0.49) H Sodium Level 134 MMOL/L (136-145) L 135 MMOL/L (136-145) L Potassium Level 4.5 MMOL/L (3.5-5.1) 4.9 MMOL/L (3.5-5.1) Chloride Level 99 MMOL/L (98-107) 100 MMOL/L (98-107) Carbon Dioxide Level 24 MMOL/L (21-32) 23 MMOL/L (21-32) Anion Gap 11 mmol/L (5-15) 12 mmol/L (5-15) Blood Urea Nitrogen 53 mg/dL (7-18) H 61 mg/dL (7-18) H Creatinine 7.4 MG/DL (0.55-1.30) H 8.0 MG/DL (0.55-1.30) H Estimat Glomerular Filtration Rate 7.1 mL/min (>60) 6.4 mL/min (>60) Glucose Level 165 MG/DL (74-106) H 91 MG/DL (74-106) Lactic Acid Level 1.20 mmol/L (0.4-2.0) Calcium Level 9.0 MG/DL (8.5-10.1) 9.2 MG/DL (8.5-10.1) Total Bilirubin 0.3 MG/DL (0.2-1.0) 0.4 MG/DL (0.2-1.0) Aspartate Amino Transf (AST/SGOT) 32 U/L (15-37) 33 U/L (15-37) Alanine Aminotransferase (ALT/SGPT) 35 U/L (12-78) 34 U/L (12-78) Alkaline Phosphatase 103 U/L (46-116) 102 U/L (46-116) Troponin I 0.022 ng/mL (0.000-0.056) 0.006 ng/mL (0.000-0.056) Pro-B-Type Natriuretic Peptide 98592 pg/mL (0-125) H Total Protein 7.0 G/DL (6.4-8.2) 7.0 G/DL (6.4-8.2) Albumin 3.1 G/DL (3.4-5.0) L 3.1 G/DL (3.4-5.0) L Globulin 3.9 g/dL 3.9 g/dL Albumin/Globulin Ratio 0.8 (1.0-2.7) L 0.8 (1.0-2.7) L Thyroid Stimulating Hormone (TSH) 2.971 uiU/mL (0.358-3.740) Hepatitis B Surface Antigen Pending General: well developed Head: normocophalic Neck: no rigidity EENT: benign Neurologic Exam Mental Status: alert Cranial Nerves III, IV, : EOMI Objective calm, no agitation ao x 2, non focal Impression/Recommendations Problems: (1) Pacemaker (2) Fever (3) Sepsis (4) ESRD (end stage renal disease) (5) HTN (hypertension) (6) Suspected 2019 novel coronavirus infection Status: stable Diagnostic Impression Acute encephalopathy likely metabolic Parkinsonism Recommendations Delirium precautions atb per primary FU COVID COnt HD Defer starting PD meds until back to baseline mentation Javier Rasheed MD Feb 21, 2020 13:23
--- NOTE | 2020-02-21 13:24 | Consultation ---
History of Present Illness General Date patient seen: Feb 20, 2020 Reason for Hospitalization: Upper Respiratory Illness Present Illness HPI 84-year-old male with PMH of ESRD on HD TTS, Parkinson's disease, HTN, ? bradycardia s/p PPM, patient poor historian, history obtained via patient and patient's , Bettye. Patient currently resides at [facility], was noted by to be more confused this a.m., with fevers of 100.5 and cough at his [facility] for which he was stent to [facility] [facility] for COVID rule out. Patient apparently missed his dialysis today due to his fever. Per , patient had recent tooth infection which was treated with penicillin about a week ago. Upon exam with patient, patient AAO x2 (person and time), patient denies any F/C, N/V, CP, SOB , abd pain at this time. On admission, elevated WBCs, RR 22, BNP 10,000. Per discussion w/ER physician, pt had exposure of COVID at facility. Patient admitted for further treatment and evaluation. 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 yrs ago Allergies: Coded Allergies: LATEX (Verified Allergy, Unknown, 02/20/20) Uncoded Allergies: NSAID (Allergy, Unknown, 02/20/20) COVID-19 Screening Contact w/high risk pt: No Recent Travel to affected area: No Experienced COVID-19 symptoms?: No COVID-19 symptoms experienced: Fever (T>100.4F or >38C), Cough Medication History Scheduled Amiodarone Hcl (Amiodarone Hcl), 200 MG ORAL EVERY 8 HOURS, (Reported) Amlodipine/Atorvastatin 5-40 Mg (Amlodipine-Atorvast 5-40 Mg), 5 TAB ORAL DAILY, (Reported) Amoxicillin/Potassium Clav 500-125 Tablet* (Augmentin 500-125 Tablet*), 1 TAB ORAL DAILY Aspirin* (Aspirin*), 325 MG ORAL DAILY Divalproex Sodium (Depakote), 500 MG PO BID, (Reported) Doxycycline Hyclate (Doxycycline Hyclate), 100 MG PO BID Finasteride (Finasteride), 5 MG ORAL DAILY, (Reported) Levothyroxine Sodium (Levothyroxine Sodium), 50 MCG ORAL DAILY, (Reported) Magnesium Hydroxide* (Milk Of Magnesia*), 30 ML ORAL DAILY, (Reported) Sevelamer Carbonate* (Renvela*), 800 MG ORAL THREE TIMES A DAY, (Reported) Vitamin B Cmplx/Vit C/Folic AC (Nephro-Deng Tablet), 1 TAB ORAL DAILY, (Reported ) Scheduled PRN Ipratropium Dinosaur 0.5MG/2.5ML (Ipratropium Dinosaur 0.5MG/2.5ML), 0.5 MG HHN Q6H PRN for Shortness of Breath, (Reported) Polyethylene Glycol 3350* (Polyethylene Glycol 3350*), 17 GM ORAL BEDTIME PRN for Constipation, (Reported) Miscellaneous Medications Acetaminophen (Mapap), 325 MG PO, (Reported) Bisacodyl (Bisacodyl), 10 MG RC, (Reported) Cholecalciferol (Vitamin D3) (Vitamin D3), 1,000 UNIT PO, (Reported) Oxandrolone (Oxandrolone), 2.5 MG PO, (Reported) Discontinued Medications Oxymetazoline HCl (Afrin), 2 SPRAY NASAL TWICE A DAY, (Reported) Discontinued Reason: Therapy completed Patient History Healthcare decision maker Resuscitation status Full Code Advanced Directive on File Review of Systems Review of Symptoms unable Physical Exam Physical Exam General appearance: somnolent, confused Head: Normocephalic, without obvious abnormality, atraumatic Eyes: conjunctivae/corneas clear. PERRL, EOM's intact. Fundi benign Throat: Lips, mucosa, and tongue normal. Teeth and gums normal Neck: supple, symmetrical, trachea midline, no adenopathy, thyroid: not enlarged, symmetric, no tenderness/mass/nodules, no carotid bruit and no JVD Lungs: clear to auscultation bilaterally Heart: regular rate and rhythm, S1, S2 normal, no murmur, click, rub or gallop Abdomen: soft, non-tender. Bowel sounds normal. No masses, no organomegaly Extremities: extremities normal, atraumatic, no cyanosis or edema Pulses: 2+ and symmetric Skin: Skin color, texture, turgor normal. No rashes or lesions Neurologic: rigidity, non focall Last 24 Hour Vital Signs Date Time Temp Pulse Resp B/P (MAP) Pulse Ox O2 Delivery O2 Flow Rate FiO2 02/21/20 12:00 97.0 70 20 130/80 (97) 95 02/21/20 12:00 70 02/21/20 09:03 71 140/80 02/21/20 09:00 Room Air 02/21/20 08:30 97.0 71 20 140/80 (100) 95 02/21/20 08:00 70 02/21/20 04:00 70 02/21/20 04:00 97.0 71 20 155/77 (103) 95 02/21/20 00:36 Room Air 02/21/20 00:00 97.9 70 20 149/73 (98) 97 02/21/20 00:00 70 02/20/20 23:17 98.6 70 18 156/68 97 Room Air 02/20/20 22:50 98.6 70 18 156/68 97 Room Air 02/20/20 20:56 98.6 78 20 138/80 98 Room Air 02/20/20 19:12 98.6 71 19 142/75 99 Room Air 02/20/20 17:07 155/83 02/20/20 16:32 98.4 75 22 130/70 99 Room Air 02/20/20 16:32 75 22 Room Air 02/20/20 16:10 70 22 132/66 (88) 96 Room Air Intake and Output 02/20/20 02/21/20 19:00 07:00 # Bowel Movements 1 Laboratory Tests Test 02/20/20 17:00 02/21/20 05:39 White Blood Count 12.7 K/UL (4.8-10.8) H 14.0 K/UL (4.8-10.8) H Red Blood Count 4.15 M/UL (4.70-6.10) L 4.27 M/UL (4.70-6.10) L Hemoglobin 11.9 G/DL (14.2-18.0) L 12.6 G/DL (14.2-18.0) L Hematocrit 39.2 % (42.0-52.0) L 38.8 % (42.0-52.0) L Mean Corpuscular Volume 94 FL (80-99) 91 FL (80-99) Mean Corpuscular Hemoglobin 28.7 PG (27.0-31.0) 29.5 PG (27.0-31.0) Mean Corpuscular Hemoglobin Concent 30.4 G/DL (32.0-36.0) L 32.6 G/DL (32.0-36.0) Red Cell Distribution Width 15.7 % (11.6-14.8) H 14.2 % (11.6-14.8) Platelet Count 310 K/UL (150-450) 321 K/UL (150-450) Mean Platelet Volume 7.9 FL (6.5-10.1) 7.3 FL (6.5-10.1) Neutrophils (%) (Auto) 78.0 % (45.0-75.0) H 78.7 % (45.0-75.0) H Lymphocytes (%) (Auto) 9.6 % (20.0-45.0) L 9.3 % (20.0-45.0) L Monocytes (%) (Auto) 8.1 % (1.0-10.0) 7.5 % (1.0-10.0) Eosinophils (%) (Auto) 2.8 % (0.0-3.0) 3.3 % (0.0-3.0) H Basophils (%) (Auto) 1.5 % (0.0-2.0) 1.2 % (0.0-2.0) D-Dimer 1.75 mg/L FEU (0.00-0.49) H Sodium Level 134 MMOL/L (136-145) L 135 MMOL/L (136-145) L Potassium Level 4.5 MMOL/L (3.5-5.1) 4.9 MMOL/L (3.5-5.1) Chloride Level 99 MMOL/L (98-107) 100 MMOL/L (98-107) Carbon Dioxide Level 24 MMOL/L (21-32) 23 MMOL/L (21-32) Anion Gap 11 mmol/L (5-15) 12 mmol/L (5-15) Blood Urea Nitrogen 53 mg/dL (7-18) H 61 mg/dL (7-18) H Creatinine 7.4 MG/DL (0.55-1.30) H 8.0 MG/DL (0.55-1.30) H Estimat Glomerular Filtration Rate 7.1 mL/min (>60) 6.4 mL/min (>60) Glucose Level 165 MG/DL (74-106) H 91 MG/DL (74-106) Lactic Acid Level 1.20 mmol/L (0.4-2.0) Calcium Level 9.0 MG/DL (8.5-10.1) 9.2 MG/DL (8.5-10.1) Total Bilirubin 0.3 MG/DL (0.2-1.0) 0.4 MG/DL (0.2-1.0) Aspartate Amino Transf (AST/SGOT) 32 U/L (15-37) 33 U/L (15-37) Alanine Aminotransferase (ALT/SGPT) 35 U/L (12-78) 34 U/L (12-78) Alkaline Phosphatase 103 U/L (46-116) 102 U/L (46-116) Troponin I 0.022 ng/mL (0.000-0.056) 0.006 ng/mL (0.000-0.056) Pro-B-Type Natriuretic Peptide 48195 pg/mL (0-125) H Total Protein 7.0 G/DL (6.4-8.2) 7.0 G/DL (6.4-8.2) Albumin 3.1 G/DL (3.4-5.0) L 3.1 G/DL (3.4-5.0) L Globulin 3.9 g/dL 3.9 g/dL Albumin/Globulin Ratio 0.8 (1.0-2.7) L 0.8 (1.0-2.7) L Thyroid Stimulating Hormone (TSH) 2.971 uiU/mL (0.358-3.740) Hepatitis B Surface Antigen Pending Microbiology Date/Time Source Procedure Growth Status 02/20/20 19:00 Nasal Nares - Final Complete 02/20/20 19:00 Nasal Nares - Final Complete Height (Feet): 5 Height (Inches): 7.00 Weight (Pounds): 160 Medications Current Medications Medications (Trade) Dose Ordered Sig/Josefina Route PRN Reason Start Time Stop Time Status Last Admin Dose Admin Amiodarone HCl (Cordarone) 200 mg BID ORAL 02/21/20 09:00 05/21/20 08:59 02/21/20 09:03 Amlodipine Besylate (Norvasc) 5 mg DAILY ORAL 02/21/20 09:00 03/22/20 08:59 02/21/20 09:03 Dextrose (Dextrose 50%) 25 ml Q30M PRN IV Hypoglycemia 02/20/20 19:00 05/20/20 18:59 Dextrose (Dextrose 50%) 50 ml Q30M PRN IV Hypoglycemia 02/20/20 19:00 05/20/20 18:59 Finasteride (Proscar) 5 mg DAILY ORAL 02/21/20 09:00 05/21/20 08:59 02/21/20 09:03 Heparin Sodium (Porcine) (Heparin 5000 units/ml) 5,000 units EVERY 12 HOURS SUBQ 02/20/20 21:00 04/05/20 20:59 02/21/20 09:03 Hydroxychloroquine Sulfate (Plaquenil) 200 mg BID ORAL 02/21/20 18:00 02/25/20 09:01 Levothyroxine Sodium (Synthroid) 50 mcg DAILY IV 02/21/20 09:00 03/22/20 08:59 02/21/20 09:09 Piperacillin Sod/ Tazobactam Sod 2.25 gm/Sodium Chloride 110 ml @ 220 mls/hr Q8HR IVPB 02/20/20 22:00 02/27/20 21:59 02/21/20 05:13 Sevelamer Carbonate (Renvela) 800 mg TID ORAL 02/21/20 09:00 05/21/20 08:59 02/21/20 09:03 Vancomycin HCl (Vanco rx to dose) 1 ea DAILY PRN MISC Per rx protocol 02/20/20 21:15 03/21/20 21:14 Assessment/Plan Problem List: (1) Pacemaker ICD Codes: Z95.0 - Presence of cardiac pacemaker SNOMED: 318347503 (2) Fever ICD Codes: R50.9 - Fever, unspecified SNOMED: 245024285 (3) Sepsis ICD Codes: A41.9 - Sepsis, unspecified organism SNOMED: 95117079 (4) ESRD (end stage renal disease) ICD Codes: N18.6 - End stage renal disease SNOMED: 73480731 (5) HTN (hypertension) ICD Codes: I10 - Essential (primary) hypertension SNOMED: 37346018 (6) Suspected 2019 novel coronavirus infection ICD Codes: R68.89 - Other general symptoms and signs SNOMED: 386800388 Assessment/Plan: Acute encephalopathy Parkinsonism Delirium precautions atb per primary FU COVID COnt HD Defer starting PD meds until back to baseline mentation [facility] Hospital declaration INPATIENT level of care is warranted for this patient because patient is a 89 year old with who presents with suspicion of . I have a high level of concern because . Patient is at high risk for . Plan of care/treatment include . Patient care is expected to be greater than 2 midnights. OBSERVATION level of care is warranted for this patient. Patient is a 89 year old with who presents with . Patient will be admitted for 1 midnight, but if additional night(s) is/are necessary, patient will be converted to inpatient status for the entire hospitalization Disposition: Once the patient is stable to leave the hospital, I anticipate the patient will likely be discharged to the following environment: Estimated discharge date: I spent 70 minutes on this patient's case, and minutes was dedicated to counseling and/or care coordination. MIPS (Merit-based Incentive Payment System) Applicable CPT: 75590, 55503 CHECK ALL THAT ARE MET: Measure #5 (CHF): All ages. Prescribe CORRINE/ARB upon discharge for patients with left ventricular systolic dysfunction. If not, the reason is clearly documented in the medical chart. Measure #8 (CHF): All ages. Prescribe a beta katelyn upon discharge for patients with left ventricular systolic dysfunction. If not, the reason is clearly documented in the medical chart. Measure #47 Advance care plan or surrogate decision maker documented in the medical record. Measure #130 The provider has documented, updated, or reviewed the patients current medication list and has documented it in the patients note. Measure #374 (All): Send report to referring provider. Measure #407(Sepsis due to MSSA bacteremia): Age 18+ Patient treated with a beta-lactam antibiotic (Nafcillin, Oxacillin or Cefazolin) as definitive therapy. MEDICAL COMPLEXITY High complexity medical decision making (need 2/3 categories) Problem - need 4 points Acute/new problem with new plan for workup (4 points, 1 max) Acute/new problem without additional workup (3 points, 1 max) Unstable chronic problem actively being managed (2 point each, 2 max) Stable chronic problem actively being managed (1 point each, 2 max) Self-limited/transient process (constipation, muscle ache, etc) (1 point each , 2 max) Data - need 4 points Reviewed labs/imaging studies (1 points, 2 max) Independent review of imaging (EKG, xrays, etc) (2 points, 2 max) Discussed case with consult/other MD/RN (2 points, 2 max) High Risk - qualify if have one of the following: Severe exacerbation of acute problem, acute mental status change, IV narcotics , monitoring drug levels (vancomycin, INR, tacrolimus etc) Javier Rasheed MD Feb 21, 2020 13:24
--- NOTE | 2020-02-21 17:43 | NUR ---
NURSE NOTES:WOUND CARE NOTES: Pt presented on admission with non-blanching erythema nancie cleft and perianal areas of buttocks. Resolving pressure injury L sacrum. dry pink epithelial at base of wound. Dry peeling skin along borders. Tx.Plan: Apply Moisture Barrier paste to cleft of buttocks with each incontinence care. Cover sacrum with Optifoam drsg. Change every 3 days and prn. Apply Cavilon Skin Barrier to heels. Cover with Optifoam drsg. Change every 7 days and prn. Reposition at least every 2hours or as tolerated. Off-load heels with pillow.
--- NOTE | 2020-02-21 19:58 | NUR ---
NURSE NOTES: Received pt from TOMMY Myrick. Pt is awake and resting in bed with HOB elevated. IV site intact. Bed locked in lowest position, bed alarm on, call light within reach. Fall precautions, and droplet precautions active. Will continue with plan of care.
[2020-02-21 20:00] VITALS: BP 138/70
[2020-02-22] VITALS: BP 131/62
[2020-02-22] MEDS: Zosyn 2.25gm in NS 110ML IVPB SCH ×3 (06:00→21:35)
--- NOTE | 2020-02-22 07:15 | NUR ---
NURSE NOTES: Handoff received from TOMMY Martinez. Patient received awake and alert and able to make needs known, bed in the low and locked position with call light within reach. Patient is on room air, contact and airborne precautions for rule out Covid19. Patient has right hand IV site clean dry and intact. will continue to monitor patient.
--- NOTE | 2020-02-22 07:21 | NUR ---
HAND-OFF: Report given to TOMMY Sigala. Pt is awake and resting in bed in no acute distress. Endorsed plan of care.
[2020-02-22 07:40] LABS: % IRON SATURATION 49 % (15-50); BASOPHILS % (AUTO) 1.2 % (0.0-2.0); EOSINOPHILS % (AUTO) 2.8 % (0.0-3.0); HEMATOCRIT 43.3 % (42.0-52.0); HEMOGLOBIN 13.6 G/DL (14.2-18.0); IRON 97 ug/dL (50-175); LYMPHOCYTES % (AUTO) 10.8 % (20.0-45.0); MEAN CORPUSCULAR VOLUME 92 FL (80-99); MONOCYTES % (AUTO) 7.9 % (1.0-10.0); NEUTROPHILS % (AUTO) 77.2 % (45.0-75.0); PLATELET COUNT 305 K/UL (150-450); RED CELL DISTRIBUTION WIDTH 14.7 % (11.6-14.8); TOTAL IRON BINDING CAPACITY 200 ug/dL (250-450); WHITE BLOOD COUNT 11.3 K/UL (4.8-10.8)
[2020-02-22 08:00] VITALS: BP 138/70
[2020-02-22 08:01] LABS: ALANINE AMINOTRANSFERASE 47 U/L (12-78); ALBUMIN 3.2 G/DL (3.4-5.0); ALBUMIN/GLOBULIN RATIO 0.7 (1.0-2.7); ALKALINE PHOSPHATASE 111 U/L (46-116); ANION GAP 15 mmol/L (5-15); ASPARTATE AMINO TRANSFERASE 39 U/L (15-37); BILIRUBIN,TOTAL 0.5 MG/DL (0.2-1.0); BLOOD UREA NITROGEN 36 mg/dL (7-18); CALCIUM 9.6 MG/DL (8.5-10.1); CARBON DIOXIDE 23 MMOL/L (21-32); CHLORIDE 105 MMOL/L (98-107); CREATININE 6.2 MG/DL (0.55-1.30); FERRITIN 744 NG/ML (8-388); POTASSIUM 4.4 MMOL/L (3.5-5.1); SODIUM 143 MMOL/L (136-145)
--- NOTE | 2020-02-22 09:15 | General Progress Note ---
Assessment/Plan Status: stable Assessment/Plan: 84-year-old male with PMH of ESRD on HD TTS, Parkinson's disease, HTN, s/p PPM 2 /2 SSS, admitted for cough/fevers 100.5 at [facility], missed HD today, here for COVID r/o, sepsis work up. Possible COVID exposure at [facility]. #Sepsis #Fevers #Cough #Possible COVID #PNA #Acute Toxic Metabolic Encephalopathy #elevated D-dimer #Sinusitis -cont. inpatient medical management, cardiac monitoring, droplet precautions -Likely multifactorial, 2/2 uremia from missed HD and PNA -COVID r/o pending -CXR w/ patchy interstitial infiltrates -BNP elevated, 10,733 -Trop 0.022 >> 0.006 -flu negative -CT head reviewed, chronic changes, sinusitis -BCx NGTD -f/u UCx/SCx -elevated d-dimer, may be 2/2 multifactorial, sepsis/ESRD, b/l US LE ordered but not done due to potential covid exposure, pt not hypoxic on room air, cont. to monitor -ID, Dr. Villa, zosyn, vancomycin, hydroxychloroquine -Pulm, Dr. Mendoza consulted, recs appreciated #ESRD on HD TTS #Elevated BNP likely 2/2 missed HD -Cont. home sevelamer 800mg TID -check PTH/vitD -check ferritin/iron panel -Nephro, Dr. Jim, recs appreciated #SSS s/p PPM #elevated BNP likely 2/2 to above #HTN #h/o afib #Aortic stenosis -cont. to monitor QTc -cont. home amlodipine 5 mg -cont. home amiodarone, d/c if QTc >500 -Eliquis 2.5 BID initiated due to chadsvasq -echo ordered -closely monitor respiratory status, daily CXR, daily troponin -Cardio following: due to h/o falls pt may be candidate for watchman #h/o falls -per , pt has h/o falls -fall precautions -will obtain PT/OT to treat/eval once COVID r/o to reduce exposure #Hypothyroidism -TSH 2.971 -cont. home meds, levothyroxine 50 #BPH -cont. home finasteride #Parkinsons Dx #Depression -holding home escitalopram for now -pt not on any meds for PD per medication review -neurology consulted: hold sinemet #IPMN -pt follows w/Dr. Rivero -pt to f/u o/p Time spent on encounter: 35 mins, >50% on counseling, coordination of care. Additional 25 mins spent counseling family w/POC. D/w ID, Cardio, Nephro and RN. Time of note doesn't reflect time of encounter. Subjective Constitutional: Denies: no symptoms, chills, diaphoresis, fever, malaise, weakness, other HEENT: Denies: no symptoms, eye pain, blurred vision, tearing, double vision, ear pain, ear discharge, nose pain, nose congestion, throat pain, throat swelling, mouth pain, mouth swelling, other Cardiovascular: Denies: no symptoms, chest pain, edema, irregular heart rate, lightheadedness, palpitations, syncope, other Respiratory: Denies: no symptoms, cough, orthopnea, shortness of breath, SOB with excertion, SOB at rest, sputum, stridor, wheezing, other Gastrointestinal/Abdominal: Denies: no symptoms, abdomen distended, abdominal pain, black stools, tarry stools, blood in stool, constipated, diarrhea, difficulty swallowing, nausea, poor appetite, poor fluid intake, rectal bleeding , vomiting, other Genitourinary: Denies: no symptoms, burning, discharge, frequency, flank pain, hematuria, incontinence, pain, urgency, other Neurologic/Psychiatric: Denies: no symptoms, anxiety, depressed, emotional problems, headache, numbness, paresthesia, pre-existing deficit, seizure, tingling, tremors, weakness, other Allergies: Coded Allergies: LATEX (Verified Allergy, Unknown, 02/20/20) Uncoded Allergies: NSAID (Allergy, Unknown, 02/20/20) Subjective Follow-up for sepsis/PNA, metabolic encephalopathy, pending COVID r/o. Mentation improved, no acute events overnight, pt denies any F/c, cough, n/v, abd pain. Wants to know when next HD is. Objective Last 24 Hour Vital Signs Date Time Temp Pulse Resp B/P (MAP) Pulse Ox O2 Delivery O2 Flow Rate FiO2 02/22/20 04:14 70 02/22/20 04:00 70 02/22/20 00:00 70 4/4/20 00:00 97.7 70 20 131/62 (85) 98 02/21/20 21:00 Room Air 02/21/20 20:00 70 02/21/20 20:00 97.7 70 20 138/70 (92) 99 02/21/20 16:05 70 02/21/20 12:00 97.0 70 20 130/80 (97) 95 02/21/20 12:00 70 Intake and Output 02/21/20 02/22/20 19:00 07:00 Intake Total 240 ml 80 ml Output Total 3000 ml Balance -2760 ml 80 ml Intake Oral 240 ml 80 ml Output Hemodialysis UF 3000 ml # Voids 1 1 # Bowel Movements 2 2 Laboratory Tests 02/22/20 06:31: White Blood Count 11.3H, Red Blood Count 4.70, Hemoglobin 13.6L, Hematocrit 43.3 , Mean Corpuscular Volume 92, Mean Corpuscular Hemoglobin 29.0, Mean Corpuscular Hemoglobin Concent 31.5L, Red Cell Distribution Width 14.7, Platelet Count 305, Mean Platelet Volume 7.3, Neutrophils (%) (Auto) 77.2H, Lymphocytes (%) (Auto) 10.8L, Monocytes (%) (Auto) 7.9, Eosinophils (%) (Auto) 2.8, Basophils (%) (Auto) 1.2, Sodium Level 143, Potassium Level 4.4, Chloride Level 105, Carbon Dioxide Level 23, Anion Gap 15, Blood Urea Nitrogen 36H, Creatinine 6.2H, Estimat Glomerular Filtration Rate 8.6, Glucose Level 78, Calcium Level 9.6, Calcium (Send out) [Pending], Iron Level 97, Total Iron Binding Capacity 200L, Percent Iron Saturation 49, Unsaturated Iron Binding 103L , Ferritin 744H, Total Bilirubin 0.5, Aspartate Amino Transf (AST/SGOT) 39H, Alanine Aminotransferase (ALT/SGPT) 47, Alkaline Phosphatase 111, Total Protein 7.9, Albumin 3.2L, Globulin 4.7, Albumin/Globulin Ratio 0.7L, Vitamin D 25- Hydroxy [Pending], 25-Hydroxy Vitamin D2 [Pending], 25-Hydroxy Vitamin D3 [ Pending], Parathyroid Hormone (Intact) [Pending], Random Vancomycin Level 14.2 Height (Feet): 5 Height (Inches): 7.00 Weight (Pounds): 130 Objective General: NAD, A&O x 4 today, awake, alert HEENT: NCAT, EOMi, MMM CV: RRR, 2/6 systolic MMR Pulm: CTAB, No wheezes, rhonchi, or rales, no accessory muscle usage or conversational dyspnea GI: Soft, nontender, nondistended, bowel sounds present Neuro: CN 2-12 grossly intact bilaterally, no focal signs. Moves limbs spontaneously Ext: No lower extremity edema bilaterally, LUE fistula +bruit Skin: no rashes lesions or ulcers, PPM noted in right upper chest wall Demarcus Cottrell M.D. Feb 22, 2020 09:15
[2020-02-22] MEDS: Amiodarone 200mg tab ORAL SCH ×2 (09:32→17:39)
[2020-02-22] MEDS: Heparin 5000 units/ml inj SUBQ SCH ×2 (09:35→21:36)
--- NOTE | 2020-02-22 09:40 | NUR ---
NURSE NOTES: venous duplex still not done. Dr Cottrell stated that it is okay to wait until Covid19 results come in unless the patients 02 saturation drops on room air.
--- NOTE | 2020-02-22 10:02 | Cardiology Progress Note ---
Assessment/Plan Status: stable Assessment/Plan Assessment/Plan: #ESRD on HD TTS via LUE AVF- missed HD on 02/19 #sepsis, cough, fevers, r/o covid 19 #Toxic metabolic encephalopathy # Parkinson's disease #HTN # SSS s/p PPM #hypothyroidism Monitor on telemetry for prolonged QT Daily EKG Continue Hydroxychloroquine Avoid Azithromycin at this time, goal QTC <450 - ok to start at that time and monitor QTC for two days Monitor and replete electrolytes Continue beta blockers Continue amlodipine for hypertension Continue amiodarone but d/c if QTC >500 Initiate anticoagulation for AFIB given elevated CHADS score, eliquis 2.5 mg BID Echocardiogram re elevated BNP Closely monitor respiratory status, daily CXR, daily troponin Evaluate for PE Subjective Cardiovascular: Reports: no symptoms Respiratory: Reports: no symptoms Gastrointestinal/Abdominal: Reports: no symptoms Genitourinary: Reports: no symptoms Subjective No acute events, remains afebrile and in no distress, no complaints, tolerating PO, no fevers. Objective Last 24 Hour Vital Signs Date Time Temp Pulse Resp B/P (MAP) Pulse Ox O2 Delivery O2 Flow Rate FiO2 02/22/20 09:32 71 138/70 02/22/20 08:00 97.9 71 18 138/70 (92) 98 02/22/20 04:14 70 02/22/20 04:00 70 02/22/20 00:00 70 02/22/20 00:00 97.7 70 20 131/62 (85) 98 02/21/20 21:00 Room Air 02/21/20 20:00 70 02/21/20 20:00 97.7 70 20 138/70 (92) 99 02/21/20 16:05 70 02/21/20 12:00 97.0 70 20 130/80 (97) 95 02/21/20 12:00 70 General Appearance: no apparent distress, alert EENT: PERRL/EOMI, normal ENT inspection, TMs normal, pharynx normal Neck: non-tender, normal alignment, supple, normal inspection, no JVD Rhythm: NSR Cardiovascular: normal peripheral pulses, normal rate, regular rhythm Respiratory/Chest: chest wall non-tender, lungs clear, normal breath sounds, no respiratory distress, no accessory muscle use Abdomen: normal bowel sounds, non tender, soft, no organomegaly Extremities: normal range of motion, non-tender, normal inspection, no calf tenderness, no swelling Neurologic: career placement services counselor II-XII grossly normal, no motor/sensory deficits Intake and Output 02/21/20 02/22/20 19:00 07:00 Intake Total 240 ml 80 ml Output Total 3000 ml Balance -2760 ml 80 ml Intake Oral 240 ml 80 ml Output Hemodialysis UF 3000 ml # Voids 1 1 # Bowel Movements 2 2 Laboratory Tests Test 02/22/20 06:31 White Blood Count 11.3 K/UL (4.8-10.8) H Red Blood Count 4.70 M/UL (4.70-6.10) Hemoglobin 13.6 G/DL (14.2-18.0) L Hematocrit 43.3 % (42.0-52.0) Mean Corpuscular Volume 92 FL (80-99) Mean Corpuscular Hemoglobin 29.0 PG (27.0-31.0) Mean Corpuscular Hemoglobin Concent 31.5 G/DL (32.0-36.0) L Red Cell Distribution Width 14.7 % (11.6-14.8) Platelet Count 305 K/UL (150-450) Mean Platelet Volume 7.3 FL (6.5-10.1) Neutrophils (%) (Auto) 77.2 % (45.0-75.0) H Lymphocytes (%) (Auto) 10.8 % (20.0-45.0) L Monocytes (%) (Auto) 7.9 % (1.0-10.0) Eosinophils (%) (Auto) 2.8 % (0.0-3.0) Basophils (%) (Auto) 1.2 % (0.0-2.0) Sodium Level 143 MMOL/L (136-145) Potassium Level 4.4 MMOL/L (3.5-5.1) Chloride Level 105 MMOL/L (98-107) Carbon Dioxide Level 23 MMOL/L (21-32) Anion Gap 15 mmol/L (5-15) Blood Urea Nitrogen 36 mg/dL (7-18) H Creatinine 6.2 MG/DL (0.55-1.30) H Estimat Glomerular Filtration Rate 8.6 mL/min (>60) Glucose Level 78 MG/DL (74-106) Calcium Level 9.6 MG/DL (8.5-10.1) Calcium (Send out) Pending Iron Level 97 ug/dL (50-175) Total Iron Binding Capacity 200 ug/dL (250-450) L Percent Iron Saturation 49 % (15-50) Unsaturated Iron Binding 103 ug/dL (112-346) L Ferritin 744 NG/ML (8-388) H Total Bilirubin 0.5 MG/DL (0.2-1.0) Aspartate Amino Transf (AST/SGOT) 39 U/L (15-37) H Alanine Aminotransferase (ALT/SGPT) 47 U/L (12-78) Alkaline Phosphatase 111 U/L (46-116) Total Protein 7.9 G/DL (6.4-8.2) Albumin 3.2 G/DL (3.4-5.0) L Globulin 4.7 g/dL Albumin/Globulin Ratio 0.7 (1.0-2.7) L Vitamin D 25-Hydroxy Pending 25-Hydroxy Vitamin D2 Pending 25-Hydroxy Vitamin D3 Pending Parathyroid Hormone (Intact) Pending Random Vancomycin Level 14.2 ug/mL Microbiology Date/Time Source Procedure Growth Status 02/20/20 17:00 Blood Blood Culture - Preliminary NO GROWTH AFTER 24 HOURS Resulted 02/20/20 16:45 Blood Blood Culture - Preliminary NO GROWTH AFTER 24 HOURS Resulted 02/20/20 19:00 Nasal Nares - Final Complete 02/20/20 19:00 Nasal Nares - Final Complete 02/20/20 00:50 Rectum Received Ricky Maciel MD Feb 22, 2020 10:02
--- NOTE | 2020-02-22 11:50 | Pulmonology Progress Note ---
Assessment/Plan Assessment/Plan IMPRESSION: 1. Fever, high-risk for COVID-19. 2. ESRD on dialysis. 3. Leukocytosis. 4. Elevated D-dimer. 5. Parkinson's. 6. Permanent pacemaker. DISCUSSION: The patient is at high risk for COVID-19. At this time, I agree with the use of empiric antibiotics. We will recommend duplex lower extremity to rule out DVT. I will follow up on chest x-ray. Agree with empiric antibiotics as well as Plaquenil. I will follow as design project manager. Current saturations are adequate. Hiro Mendoza M.D. Subjective Interval Events: None new Constitutional: Reports: no symptoms HEENT: Repors: no symptoms Respiratory: Reports: no symptoms Cardiovascular: Reports: no symptoms Gastrointestinal/Abdominal: Reports: no symptoms Allergies: Coded Allergies: LATEX (Verified Allergy, Unknown, 02/20/20) Uncoded Allergies: NSAID (Allergy, Unknown, 02/20/20) Objective Last 24 Hour Vital Signs Date Time Temp Pulse Resp B/P (MAP) Pulse Ox O2 Delivery O2 Flow Rate FiO2 02/22/20 09:32 71 138/70 02/22/20 09:00 Room Air 02/22/20 09:00 70 02/22/20 08:00 97.9 71 18 138/70 (92) 98 02/22/20 04:14 70 02/22/20 04:00 70 02/22/20 00:00 70 02/22/20 00:00 97.7 70 20 131/62 (85) 98 02/21/20 21:00 Room Air 02/21/20 20:00 70 02/21/20 20:00 97.7 70 20 138/70 (92) 99 02/21/20 16:05 70 02/21/20 12:00 97.0 70 20 130/80 (97) 95 02/21/20 12:00 70 Intake and Output 02/21/20 02/22/20 19:00 07:00 Intake Total 240 ml 80 ml Output Total 3000 ml Balance -2760 ml 80 ml Intake Oral 240 ml 80 ml Output Hemodialysis UF 3000 ml # Voids 1 1 # Bowel Movements 2 2 General Appearance: no acute distress HEENT: normocephalic Respiratory/Chest: chest wall non-tender Cardiovascular: normal peripheral pulses Abdomen: normal bowel sounds Microbiology Date/Time Source Procedure Growth Status 02/20/20 17:00 Blood Blood Culture - Preliminary NO GROWTH AFTER 24 HOURS Resulted 02/20/20 16:45 Blood Blood Culture - Preliminary NO GROWTH AFTER 24 HOURS Resulted 02/20/20 19:00 Nasal Nares - Final Complete 02/20/20 19:00 Nasal Nares - Final Complete 02/20/20 00:50 Rectum Received Laboratory Tests 02/22/20 06:31: White Blood Count 11.3H, Red Blood Count 4.70, Hemoglobin 13.6L, Hematocrit 43.3 , Mean Corpuscular Volume 92, Mean Corpuscular Hemoglobin 29.0, Mean Corpuscular Hemoglobin Concent 31.5L, Red Cell Distribution Width 14.7, Platelet Count 305, Mean Platelet Volume 7.3, Neutrophils (%) (Auto) 77.2H, Lymphocytes (%) (Auto) 10.8L, Monocytes (%) (Auto) 7.9, Eosinophils (%) (Auto) 2.8, Basophils (%) (Auto) 1.2, Sodium Level 143, Potassium Level 4.4, Chloride Level 105, Carbon Dioxide Level 23, Anion Gap 15, Blood Urea Nitrogen 36H, Creatinine 6.2H, Estimat Glomerular Filtration Rate 8.6, Glucose Level 78, Calcium Level 9.6, Calcium (Send out) [Pending], Iron Level 97, Total Iron Binding Capacity 200L, Percent Iron Saturation 49, Unsaturated Iron Binding 103L , Ferritin 744H, Total Bilirubin 0.5, Aspartate Amino Transf (AST/SGOT) 39H, Alanine Aminotransferase (ALT/SGPT) 47, Alkaline Phosphatase 111, Total Protein 7.9, Albumin 3.2L, Globulin 4.7, Albumin/Globulin Ratio 0.7L, Vitamin D 25- Hydroxy [Pending], 25-Hydroxy Vitamin D2 [Pending], 25-Hydroxy Vitamin D3 [ Pending], Parathyroid Hormone (Intact) [Pending], Random Vancomycin Level 14.2 Current Medications Medications (Trade) Dose Ordered Sig/Josefina Route PRN Reason Start Time Stop Time Status Last Admin Dose Admin Amiodarone HCl (Cordarone) 200 mg BID ORAL 02/21/20 09:00 05/21/20 08:59 02/22/20 09:32 Amlodipine Besylate (Norvasc) 5 mg DAILY ORAL 02/21/20 09:00 03/22/20 08:59 02/22/20 09:32 Dextrose (Dextrose 50%) 25 ml Q30M PRN IV Hypoglycemia 02/20/20 19:00 05/20/20 18:59 Dextrose (Dextrose 50%) 50 ml Q30M PRN IV Hypoglycemia 02/20/20 19:00 05/20/20 18:59 Finasteride (Proscar) 5 mg DAILY ORAL 02/21/20 09:00 05/21/20 08:59 02/22/20 09:32 Heparin Sodium (Porcine) (Heparin 5000 units/ml) 5,000 units EVERY 12 HOURS SUBQ 02/20/20 21:00 04/05/20 20:59 02/22/20 09:35 Hydroxychloroquine Sulfate (Plaquenil) 200 mg BID ORAL 02/21/20 18:00 02/25/20 09:01 02/22/20 09:32 Levothyroxine Sodium (Synthroid) 50 mcg DAILY IV 02/21/20 09:00 03/22/20 08:59 02/22/20 10:20 Piperacillin Sod/ Tazobactam Sod 2.25 gm/Sodium Chloride 110 ml @ 220 mls/hr Q8HR IVPB 02/20/20 22:00 02/27/20 21:59 02/22/20 06:00 Sevelamer Carbonate (Renvela) 800 mg TID ORAL 02/21/20 09:00 05/21/20 08:59 02/22/20 09:32 Vancomycin HCl (Vanco rx to dose) 1 ea DAILY PRN MISC Per rx protocol 02/20/20 21:15 03/21/20 21:14 Vancomycin HCl 750 mg/Dextrose 275 ml @ 183.333 mls/hr ONCE IVPB 02/22/20 15:00 02/22/20 17:00 Hiro Mendoza MD Feb 22, 2020 11:50
[2020-02-22 12:00] VITALS: BP 149/73
[2020-02-22] MEDS ORDERED: Vancomycin 1gm in D5W 275ml IVPB SCH (15:00)
[2020-02-22] MEDS ORDERED: Vancomycin 750mg/D5W 275ml IVPB SCH ×2 (15:00)
[2020-02-22 16:00] VITALS: BP 147/62
--- NOTE | 2020-02-22 17:15 | Infectious Diseases Prog Note ---
Assessment/Plan Assessment/Plan ASSESSMENT/PLAN: 1. rule covid-19 virus infection, pns, fevers, leukocytosis, ? sepsis - zosyn, vancomycin, hydroxychloroquine -day # 2 tx - f/u on covid-19 testing - f/u on labs, cultures, chest x-ray 2. End-stage renal disease, on hemodialysis. 3. Anemia. 4. Parkinson disease. 5. Hypertension. 6. Bradycardia and permanent pacemaker. 7. Hypothyroidism. 8. BPH. 9. Aspiration risk. 10. Hypertension treatment per primary care team. 11. Allergies to latex and NSAIDs. 12. Social history is negative. 13. Family history is noncontributory. 14. MAR is noted. 15. Case was discussed with RN. 16. Case was discussed with Dr. Cottrell. 17. Orders were noted and entered. 18. The patient was seen in the emergency room at [address] Subjective Constitutional: Reports: fatigue; Denies: fever HEENT: Denies: congestion Respiratory: Denies: shortness of breath Cardiovascular: Denies: chest pain Gastrointestinal/Abdominal: Denies: nausea, vomiting, diarrhea Genitourinary: Reports: other - no cortez Neurologic: Denies: headache Psychiatric: Denies: depression Skin: Denies: rash Hematologic: Denies: bleeding Musculoskeletal: Denies: pain Allergies: Coded Allergies: LATEX (Verified Allergy, Unknown, 02/20/20) Uncoded Allergies: NSAID (Allergy, Unknown, 02/20/20) Objective Vital Signs Last 24 Hour Vital Signs Date Time Temp Pulse Resp B/P (MAP) Pulse Ox O2 Delivery O2 Flow Rate FiO2 02/22/20 16:00 97.7 70 16 147/62 (90) 97 02/22/20 12:00 97.7 71 17 149/73 (98) 98 02/22/20 12:00 70 02/22/20 09:32 71 138/70 02/22/20 09:00 Room Air 02/22/20 09:00 70 02/22/20 08:00 97.9 71 18 138/70 (92) 98 02/22/20 04:14 70 02/22/20 04:00 70 02/22/20 00:00 70 02/22/20 00:00 97.7 70 20 131/62 (85) 98 02/21/20 21:00 Room Air 02/21/20 20:00 70 02/21/20 20:00 97.7 70 20 138/70 (92) 99 Height (Feet): 5 Height (Inches): 7.00 Weight (Pounds): 131 General Appearance: no acute distress HEENT: normocephalic, atraumatic, anicteric, mucous membranes moist Respiratory/Chest: no accessory muscle use, crackles/rales, rhonchi - bilaterally, rhonchi - left Cardiovascular: normal rate, regular rhythm, no gallop/murmur, no JVD Abdomen: normal bowel sounds, soft, non tender, no organomegaly, non distended Genitourinary: other - no cortez Extremities: no cyanosis Skin: no rash Neurologic/Psychiatric: medical appointment clerk II-XII grossly normal, alert, oriented x 3, responsive Lymphatic: no neck adenopathy Musculoskeletal: no effusion Objective Chest x-ray - 02/21/20 - Procedure: XRAY Chest 1v Indication: Dyspnea Comparison: None A single view chest radiograph was obtained. Findings: There is a linear density oriented horizontally in the right midlung likely atelectasis, scarring or could possibly be a small fluid within the minor fissure. Pulmonary vascularity is mildly prominent as is interstitium within both lungs. Lung volumes are low. Heart size is normal. Aorta is calcified. Bones are osteopenic. Pacemaker noted. Cholecystectomy clips are present in the right upper quadrant abdomen. IMPRESSION: Suspected mild pulmonary vascular congestion. Correlate clinically Atelectasis versus scarring right midlung. Microbiology Date/Time Source Procedure Growth Status 02/20/20 17:00 Blood Blood Culture - Preliminary NO GROWTH AFTER 24 HOURS Resulted 02/20/20 16:45 Blood Blood Culture - Preliminary NO GROWTH AFTER 24 HOURS Resulted 02/20/20 19:00 Nasal Nares - Final Complete 02/20/20 19:00 Nasal Nares - Final Complete 02/20/20 00:50 Rectum Received Laboratory Tests Test 02/22/20 06:31 White Blood Count 11.3 K/UL (4.8-10.8) H Red Blood Count 4.70 M/UL (4.70-6.10) Hemoglobin 13.6 G/DL (14.2-18.0) L Hematocrit 43.3 % (42.0-52.0) Mean Corpuscular Volume 92 FL (80-99) Mean Corpuscular Hemoglobin 29.0 PG (27.0-31.0) Mean Corpuscular Hemoglobin Concent 31.5 G/DL (32.0-36.0) L Red Cell Distribution Width 14.7 % (11.6-14.8) Platelet Count 305 K/UL (150-450) Mean Platelet Volume 7.3 FL (6.5-10.1) Neutrophils (%) (Auto) 77.2 % (45.0-75.0) H Lymphocytes (%) (Auto) 10.8 % (20.0-45.0) L Monocytes (%) (Auto) 7.9 % (1.0-10.0) Eosinophils (%) (Auto) 2.8 % (0.0-3.0) Basophils (%) (Auto) 1.2 % (0.0-2.0) Sodium Level 143 MMOL/L (136-145) Potassium Level 4.4 MMOL/L (3.5-5.1) Chloride Level 105 MMOL/L (98-107) Carbon Dioxide Level 23 MMOL/L (21-32) Anion Gap 15 mmol/L (5-15) Blood Urea Nitrogen 36 mg/dL (7-18) H Creatinine 6.2 MG/DL (0.55-1.30) H Estimat Glomerular Filtration Rate 8.6 mL/min (>60) Glucose Level 78 MG/DL (74-106) Calcium Level 9.6 MG/DL (8.5-10.1) Calcium (Send out) Pending Iron Level 97 ug/dL (50-175) Total Iron Binding Capacity 200 ug/dL (250-450) L Percent Iron Saturation 49 % (15-50) Unsaturated Iron Binding 103 ug/dL (112-346) L Ferritin 744 NG/ML (8-388) H Total Bilirubin 0.5 MG/DL (0.2-1.0) Aspartate Amino Transf (AST/SGOT) 39 U/L (15-37) H Alanine Aminotransferase (ALT/SGPT) 47 U/L (12-78) Alkaline Phosphatase 111 U/L (46-116) Total Protein 7.9 G/DL (6.4-8.2) Albumin 3.2 G/DL (3.4-5.0) L Globulin 4.7 g/dL Albumin/Globulin Ratio 0.7 (1.0-2.7) L Vitamin D 25-Hydroxy Pending 25-Hydroxy Vitamin D2 Pending 25-Hydroxy Vitamin D3 Pending Parathyroid Hormone (Intact) Pending Random Vancomycin Level 14.2 ug/mL Current Medications Medications (Trade) Dose Ordered Sig/Josefina Route PRN Reason Start Time Stop Time Status Last Admin Dose Admin Amiodarone HCl (Cordarone) 200 mg BID ORAL 02/21/20 09:00 05/21/20 08:59 02/22/20 09:32 Amlodipine Besylate (Norvasc) 5 mg DAILY ORAL 02/21/20 09:00 03/22/20 08:59 02/22/20 09:32 Dextrose (Dextrose 50%) 25 ml Q30M PRN IV Hypoglycemia 02/20/20 19:00 05/20/20 18:59 Dextrose (Dextrose 50%) 50 ml Q30M PRN IV Hypoglycemia 02/20/20 19:00 05/20/20 18:59 Finasteride (Proscar) 5 mg DAILY ORAL 02/21/20 09:00 05/21/20 08:59 02/22/20 09:32 Heparin Sodium (Porcine) (Heparin 5000 units/ml) 5,000 units EVERY 12 HOURS SUBQ 02/20/20 21:00 04/05/20 20:59 02/22/20 09:35 Hydroxychloroquine Sulfate (Plaquenil) 200 mg BID ORAL 02/21/20 18:00 02/25/20 09:01 02/22/20 09:32 Levothyroxine Sodium (Synthroid) 50 mcg DAILY IV 02/21/20 09:00 03/22/20 08:59 02/22/20 10:20 Piperacillin Sod/ Tazobactam Sod 2.25 gm/Sodium Chloride 110 ml @ 220 mls/hr Q8HR IVPB 02/20/20 22:00 02/27/20 21:59 02/22/20 14:03 Sevelamer Carbonate (Renvela) 800 mg TID ORAL 02/21/20 09:00 05/21/20 08:59 02/22/20 13:02 Vancomycin HCl (Vanco rx to dose) 1 ea DAILY PRN MISC Per rx protocol 02/20/20 21:15 03/21/20 21:14 Nataliya Villa MD Feb 22, 2020 17:15
--- NOTE | 2020-02-22 19:36 | NUR ---
HAND-OFF: Report given to TOMMY Seay.
--- NOTE | 2020-02-22 19:37 | NUR ---
NURSE NOTES: Got report from Jovon SANDERS. Pt in stable condition. Denies any pain. No s/s of distress or discomfort noted. Pt resting in bed comfortably. Bed in low andl locked position, call light within reach, bedside table within reach. Continue to monitor.
[2020-02-22 20:00] VITALS: BP 137/68
--- NOTE | 2020-02-22 20:14 | Nephrology Progress Note ---
Assessment/Plan Plan #ESRD on HD TTS via LUE AVF- missed HD on 02/19 #sepsis, cough, fevers, r/o covid 19 #Toxic metabolic encephalopathy # Parkinson's disease #HTN # SSS s/p PPM #hypothyroidism - nxt HD tomorrow - monday - ID and pulm consulted - r/o COVID - abx per ID- vanco, zosyn, Plaquenil - check PTH/vitD-> pending - sevelamer 800mg TID - check ferritin/iron panel-. adequate - continue amlodipine 5mg daily - continue levothyroxine 50 mcg daily - continue amiodarone 200mg daily Subjective ROS Limited/Unobtainable: Yes Subjective s/p HD yesterday with 3l removed BP stable Labs reviewed Objective Objective Last 24 Hour Vital Signs Date Time Temp Pulse Resp B/P (MAP) Pulse Ox O2 Delivery O2 Flow Rate FiO2 02/22/20 16:00 97.7 70 16 147/62 (90) 97 02/22/20 16:00 70 02/22/20 12:00 97.7 71 17 149/73 (98) 98 02/22/20 12:00 70 02/22/20 09:32 71 138/70 02/22/20 09:00 Room Air 02/22/20 09:00 70 02/22/20 08:00 97.9 71 18 138/70 (92) 98 02/22/20 04:14 70 02/22/20 04:00 70 02/22/20 00:00 70 02/22/20 00:00 97.7 70 20 131/62 (85) 98 02/21/20 21:00 Room Air Intake and Output 02/21/20 02/22/20 19:00 07:00 Intake Total 240 ml 80 ml Output Total 3000 ml Balance -2760 ml 80 ml Intake Oral 240 ml 80 ml Output Hemodialysis UF 3000 ml # Voids 1 1 # Bowel Movements 2 2 Laboratory Tests 02/22/20 06:31: White Blood Count 11.3H, Red Blood Count 4.70, Hemoglobin 13.6L, Hematocrit 43.3 , Mean Corpuscular Volume 92, Mean Corpuscular Hemoglobin 29.0, Mean Corpuscular Hemoglobin Concent 31.5L, Red Cell Distribution Width 14.7, Platelet Count 305, Mean Platelet Volume 7.3, Neutrophils (%) (Auto) 77.2H, Lymphocytes (%) (Auto) 10.8L, Monocytes (%) (Auto) 7.9, Eosinophils (%) (Auto) 2.8, Basophils (%) (Auto) 1.2, Sodium Level 143, Potassium Level 4.4, Chloride Level 105, Carbon Dioxide Level 23, Anion Gap 15, Blood Urea Nitrogen 36H, Creatinine 6.2H, Estimat Glomerular Filtration Rate 8.6, Glucose Level 78, Calcium Level 9.6, Calcium (Send out) [Pending], Iron Level 97, Total Iron Binding Capacity 200L, Percent Iron Saturation 49, Unsaturated Iron Binding 103L , Ferritin 744H, Total Bilirubin 0.5, Aspartate Amino Transf (AST/SGOT) 39H, Alanine Aminotransferase (ALT/SGPT) 47, Alkaline Phosphatase 111, Total Protein 7.9, Albumin 3.2L, Globulin 4.7, Albumin/Globulin Ratio 0.7L, Vitamin D 25- Hydroxy [Pending], 25-Hydroxy Vitamin D2 [Pending], 25-Hydroxy Vitamin D3 [ Pending], Parathyroid Hormone (Intact) [Pending], Random Vancomycin Level 14.2 Height (Feet): 5 Height (Inches): 7.00 Weight (Pounds): 131 Tiffanie Jim M.D. Feb 22, 2020 20:14
--- NOTE | 2020-02-22 20:58 | Neurology Progress Note ---
Interim History Interim History ROS Limited/Unobtainable: Yes Interim History mentation improved after HD, to cont holding sinemet for now Objective Physical Exam Last Vital Signs Date Time Temp Pulse Resp B/P (MAP) Pulse Ox O2 Delivery O2 Flow Rate FiO2 02/22/20 16:00 97.7 70 16 147/62 (90) 97 02/22/20 09:00 Room Air Laboratory Tests Test 02/22/20 06:31 White Blood Count 11.3 K/UL (4.8-10.8) H Red Blood Count 4.70 M/UL (4.70-6.10) Hemoglobin 13.6 G/DL (14.2-18.0) L Hematocrit 43.3 % (42.0-52.0) Mean Corpuscular Volume 92 FL (80-99) Mean Corpuscular Hemoglobin 29.0 PG (27.0-31.0) Mean Corpuscular Hemoglobin Concent 31.5 G/DL (32.0-36.0) L Red Cell Distribution Width 14.7 % (11.6-14.8) Platelet Count 305 K/UL (150-450) Mean Platelet Volume 7.3 FL (6.5-10.1) Neutrophils (%) (Auto) 77.2 % (45.0-75.0) H Lymphocytes (%) (Auto) 10.8 % (20.0-45.0) L Monocytes (%) (Auto) 7.9 % (1.0-10.0) Eosinophils (%) (Auto) 2.8 % (0.0-3.0) Basophils (%) (Auto) 1.2 % (0.0-2.0) Sodium Level 143 MMOL/L (136-145) Potassium Level 4.4 MMOL/L (3.5-5.1) Chloride Level 105 MMOL/L (98-107) Carbon Dioxide Level 23 MMOL/L (21-32) Anion Gap 15 mmol/L (5-15) Blood Urea Nitrogen 36 mg/dL (7-18) H Creatinine 6.2 MG/DL (0.55-1.30) H Estimat Glomerular Filtration Rate 8.6 mL/min (>60) Glucose Level 78 MG/DL (74-106) Calcium Level 9.6 MG/DL (8.5-10.1) Calcium (Send out) Pending Iron Level 97 ug/dL (50-175) Total Iron Binding Capacity 200 ug/dL (250-450) L Percent Iron Saturation 49 % (15-50) Unsaturated Iron Binding 103 ug/dL (112-346) L Ferritin 744 NG/ML (8-388) H Total Bilirubin 0.5 MG/DL (0.2-1.0) Aspartate Amino Transf (AST/SGOT) 39 U/L (15-37) H Alanine Aminotransferase (ALT/SGPT) 47 U/L (12-78) Alkaline Phosphatase 111 U/L (46-116) Total Protein 7.9 G/DL (6.4-8.2) Albumin 3.2 G/DL (3.4-5.0) L Globulin 4.7 g/dL Albumin/Globulin Ratio 0.7 (1.0-2.7) L Vitamin D 25-Hydroxy Pending 25-Hydroxy Vitamin D2 Pending 25-Hydroxy Vitamin D3 Pending Parathyroid Hormone (Intact) Pending Random Vancomycin Level 14.2 ug/mL General: well developed Head: normocophalic Neck: no rigidity EENT: benign Neurologic Exam Mental Status: alert Cranial Nerves III, IV, : EOMI Objective calm, no agitation ao x 2, non focal Impression/Recommendations Problems: (1) Pacemaker (2) Fever (3) Sepsis (4) ESRD (end stage renal disease) (5) HTN (hypertension) (6) Suspected 2019 novel coronavirus infection Status: stable Diagnostic Impression Acute encephalopathy likely metabolic Parkinsonism Recommendations Delirium precautions atb per primary FU COVID COnt HD Defer starting PD meds until back to baseline mentation Javier Rasheed MD Feb 22, 2020 20:58
[2020-02-23] VITALS: BP 141/70
[2020-02-23 04:00] VITALS: BP 147/70
[2020-02-23] MEDS: Zosyn 2.25gm in NS 110ML IVPB SCH ×3 (05:39→22:02)
--- NOTE | 2020-02-23 07:20 | NUR ---
HAND-OFF: Report given to Carmencita SANDERS.
--- NOTE | 2020-02-23 07:21 | NUR ---
NURSE NOTES: Received report from TOMMY Cabrera. Patient in bed resting, no active s/s cardiac, respiratory distress noticed at this time. Patient AOx3, on room air. IV on right hand 20G, asymptomatic, patent, intact. Endorsed patient schedule for HD today, already called [facility]. Bed in lowest position, side rails upx2, call light within reach, bed alarm on. Will continue to monitor.
[2020-02-23 08:00] VITALS: BP 144/72
[2020-02-23] MEDS: Amiodarone 200mg tab ORAL SCH ×2 (09:00→17:26)
[2020-02-23 09:01] LABS: BASOPHILS % (AUTO) 0.9 % (0.0-2.0); EOSINOPHILS % (AUTO) 5.3 % (0.0-3.0); HEMATOCRIT 37.6 % (42.0-52.0); HEMOGLOBIN 12.1 G/DL (14.2-18.0); LYMPHOCYTES % (AUTO) 14.5 % (20.0-45.0); MEAN CORPUSCULAR VOLUME 91 FL (80-99); MONOCYTES % (AUTO) 9.8 % (1.0-10.0); NEUTROPHILS % (AUTO) 69.5 % (45.0-75.0); PLATELET COUNT 264 K/UL (150-450); RED BLOOD COUNT 4.11 M/UL (4.70-6.10); RED CELL DISTRIBUTION WIDTH 14.5 % (11.6-14.8); WHITE BLOOD COUNT 9.4 K/UL (4.8-10.8)
[2020-02-23 09:16] LABS: ALANINE AMINOTRANSFERASE 35 U/L (12-78); ALBUMIN 2.8 G/DL (3.4-5.0); ALBUMIN/GLOBULIN RATIO 0.7 (1.0-2.7); ALKALINE PHOSPHATASE 91 U/L (46-116); ANION GAP 13 mmol/L (5-15); ASPARTATE AMINO TRANSFERASE 30 U/L (15-37); BILIRUBIN,TOTAL 0.4 MG/DL (0.2-1.0); BLOOD UREA NITROGEN 49 mg/dL (7-18); CALCIUM 9.1 MG/DL (8.5-10.1); CARBON DIOXIDE 22 MMOL/L (21-32); CHLORIDE 104 MMOL/L (98-107); CREATININE 7.6 MG/DL (0.55-1.30); POTASSIUM 4.8 MMOL/L (3.5-5.1); SODIUM 139 MMOL/L (136-145)
[2020-02-23] MEDS: Heparin 5000 units/ml inj SUBQ SCH ×2 (09:23→22:03)
--- NOTE | 2020-02-23 09:29 | General Progress Note ---
Assessment/Plan Status: stable Assessment/Plan: 84-year-old male with PMH of ESRD on HD TTS, Parkinson's disease, HTN, s/p PPM 2 /2 SSS, admitted for cough/fevers 100.5 at [facility], missed HD today, here for COVID r/o, sepsis work up. Possible COVID exposure at [facility]. #Sepsis #Fevers #Cough #Possible COVID #PNA #Acute Toxic Metabolic Encephalopathy #elevated D-dimer #Sinusitis -cont. inpatient medical management, cardiac monitoring, droplet precautions -Likely multifactorial, 2/2 uremia from missed HD and PNA -COVID r/o pending -CXR w/ patchy interstitial infiltrates -BNP elevated, 10,733 -Trop 0.022 >> 0.006 -flu negative -CT head reviewed, chronic changes, sinusitis -BCx NGTD -f/u UCx/SCx -elevated d-dimer, may be 2/2 multifactorial, sepsis/ESRD, b/l US LE ordered but not done due to potential covid exposure, pt not hypoxic on room air, cont. to monitor -ID, Dr. Villa: zosyn, vancomycin, hydroxychloroquine -Pulm, Dr. Mendoza consulted, recs appreciated #ESRD on HD TTS #Elevated BNP likely 2/2 missed HD -Cont. home sevelamer 800mg TID -PTH WNL -vitD pending -check ferritin/iron panel -HD per nephro -Nephro, Dr. Jim, recs appreciated #SSS s/p PPM #elevated BNP likely 2/2 to above #HTN #h/o afib #Aortic stenosis -cont. to monitor QTc -cont. home amlodipine 5 mg -cont. home amiodarone, d/c if QTc >500 -Eliquis 2.5 BID initiated due to chadsvasq -echo ordered -closely monitor respiratory status, daily CXR, daily troponin -Cardio following: due to h/o falls pt may be candidate for watchman #h/o falls -per , pt has h/o falls -fall precautions -will obtain PT/OT to treat/eval once COVID r/o to reduce exposure #Hypothyroidism -TSH 2.971 -cont. home meds, levothyroxine 50 #BPH -cont. home finasteride #Parkinsons Dx #Depression -holding home escitalopram for now -pt not on any meds for PD per medication review -neurology consulted: hold sinemet #IPMN -pt follows w/Dr. Rivero -pt to f/u o/p Time spent on encounter: 35 mins, >50% on counseling, coordination of care. Time of note doesn't reflect time of encounter. Subjective Constitutional: Denies: no symptoms, chills, diaphoresis, fever, malaise, weakness, other HEENT: Denies: no symptoms, eye pain, blurred vision, tearing, double vision, ear pain, ear discharge, nose pain, nose congestion, throat pain, throat swelling, mouth pain, mouth swelling, other Cardiovascular: Denies: no symptoms, chest pain, edema, irregular heart rate, lightheadedness, palpitations, syncope, other Respiratory: Denies: no symptoms, cough, orthopnea, shortness of breath, SOB with excertion, SOB at rest, sputum, stridor, wheezing, other Gastrointestinal/Abdominal: Denies: no symptoms, abdomen distended, abdominal pain, black stools, tarry stools, blood in stool, constipated, diarrhea, difficulty swallowing, nausea, poor appetite, poor fluid intake, rectal bleeding , vomiting, other Genitourinary: Denies: no symptoms, burning, discharge, frequency, flank pain, hematuria, incontinence, pain, urgency, other Neurologic/Psychiatric: Denies: no symptoms, anxiety, depressed, emotional problems, headache, numbness, paresthesia, pre-existing deficit, seizure, tingling, tremors, weakness, other Allergies: Coded Allergies: LATEX (Verified Allergy, Unknown, 02/20/20) Uncoded Allergies: NSAID (Allergy, Unknown, 02/20/20) Subjective Follow-up for sepsis/PNA, metabolic encephalopathy, pending COVID r/o. Pt with no concerns today, denies f/c, cough. Objective Last 24 Hour Vital Signs Date Time Temp Pulse Resp B/P (MAP) Pulse Ox O2 Delivery O2 Flow Rate FiO2 02/23/20 09:00 70 144/72 02/23/20 04:00 70 02/23/20 04:00 97.7 70 16 147/70 (95) 95 02/23/20 00:00 70 02/23/20 00:00 97.7 70 16 141/70 (93) 95 02/22/20 21:00 Room Air 02/22/20 20:00 97.5 70 16 137/68 (91) 96 02/22/20 20:00 70 02/22/20 16:00 97.7 70 16 147/62 (90) 97 02/22/20 16:00 70 02/22/20 12:00 97.7 71 17 149/73 (98) 98 02/22/20 12:00 70 02/22/20 09:32 71 138/70 Intake and Output 02/22/20 02/23/20 19:00 07:00 Intake Total 480 ml Balance 480 ml Intake Oral 480 ml Laboratory Tests 02/23/20 05:25: White Blood Count 9.4, Red Blood Count 4.11L, Hemoglobin 12.1L, Hematocrit 37.6L , Mean Corpuscular Volume 91, Mean Corpuscular Hemoglobin 29.4, Mean Corpuscular Hemoglobin Concent 32.2, Red Cell Distribution Width 14.5, Platelet Count 264, Mean Platelet Volume 7.0, Neutrophils (%) (Auto) 69.5, Lymphocytes (% ) (Auto) 14.5L, Monocytes (%) (Auto) 9.8, Eosinophils (%) (Auto) 5.3H, Basophils (%) (Auto) 0.9, Sodium Level 139, Potassium Level 4.8, Chloride Level 104, Carbon Dioxide Level 22, Anion Gap 13, Blood Urea Nitrogen 49H, Creatinine 7.6H, Estimat Glomerular Filtration Rate 6.8, Glucose Level 86, Calcium Level 9.1, Total Bilirubin 0.4, Aspartate Amino Transf (AST/SGOT) 30, Alanine Aminotransferase (ALT/SGPT) 35, Alkaline Phosphatase 91, Total Protein 6.8, Albumin 2.8L, Globulin 4.0, Albumin/Globulin Ratio 0.7L Height (Feet): 5 Height (Inches): 7.00 Weight (Pounds): 132 Objective General: NAD, A&O x 4, awake, alert HEENT: NCAT, EOMi, MMM CV: RRR, 2/6 systolic MMR Pulm: CTAB, No wheezes, rhonchi, or rales, no accessory muscle usage or conversational dyspnea GI: Soft, nontender, nondistended, bowel sounds present Ext: No lower extremity edema bilaterally, LUE fistula +bruit Skin: no rashes lesions or ulcers, PPM noted in right upper chest wall Demarcus Cottrell M.D. Feb 23, 2020 09:29
--- NOTE | 2020-02-23 11:36 | Pulmonology Progress Note ---
Assessment/Plan Assessment/Plan IMPRESSION: 1. Fever, high-risk for COVID-19. results pending 2. ESRD on dialysis. 3. Leukocytosis. 4. Elevated D-dimer. 5. Parkinson's. 6. Permanent pacemaker. DISCUSSION: The patient is at high risk for COVID-19. At this time, I agree with the use of empiric antibiotics. Await duplex lower extremity to rule out DVT. Agree with empiric antibiotics as well as Plaquenil. 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 Current saturations are adequate. Hiro Mendoza M.D. Subjective Interval Events: None new Constitutional: Reports: no symptoms HEENT: Repors: no symptoms Respiratory: Reports: no symptoms Cardiovascular: Reports: no symptoms Gastrointestinal/Abdominal: Reports: no symptoms Allergies: Coded Allergies: LATEX (Verified Allergy, Unknown, 02/20/20) Uncoded Allergies: NSAID (Allergy, Unknown, 02/20/20) Objective Last 24 Hour Vital Signs Date Time Temp Pulse Resp B/P (MAP) Pulse Ox O2 Delivery O2 Flow Rate FiO2 02/23/20 09:00 Room Air 02/23/20 09:00 70 144/72 02/23/20 08:00 70 02/23/20 08:00 97.0 70 16 144/72 (96) 97 02/23/20 04:00 70 02/23/20 04:00 97.7 70 16 147/70 (95) 95 02/23/20 00:00 70 02/23/20 00:00 97.7 70 16 141/70 (93) 95 02/22/20 21:00 Room Air 02/22/20 20:00 97.5 70 16 137/68 (91) 96 02/22/20 20:00 70 02/22/20 16:00 97.7 70 16 147/62 (90) 97 02/22/20 16:00 70 02/22/20 12:00 97.7 71 17 149/73 (98) 98 02/22/20 12:00 70 Intake and Output 02/22/20 02/23/20 19:00 07:00 Intake Total 480 ml Balance 480 ml Intake Oral 480 ml General Appearance: no acute distress HEENT: normocephalic Respiratory/Chest: chest wall non-tender Cardiovascular: normal peripheral pulses Abdomen: normal bowel sounds Microbiology Date/Time Source Procedure Growth Status 02/20/20 17:00 Blood Blood Culture - Preliminary NO GROWTH AFTER 48 HOURS Resulted 02/20/20 16:45 Blood Blood Culture - Preliminary NO GROWTH AFTER 48 HOURS Resulted 02/20/20 19:00 Nasal Nares - Final Complete 02/20/20 19:00 Nasal Nares - Final Complete Laboratory Tests 02/23/20 05:25: White Blood Count 9.4, Red Blood Count 4.11L, Hemoglobin 12.1L, Hematocrit 37.6L , Mean Corpuscular Volume 91, Mean Corpuscular Hemoglobin 29.4, Mean Corpuscular Hemoglobin Concent 32.2, Red Cell Distribution Width 14.5, Platelet Count 264, Mean Platelet Volume 7.0, Neutrophils (%) (Auto) 69.5, Lymphocytes (% ) (Auto) 14.5L, Monocytes (%) (Auto) 9.8, Eosinophils (%) (Auto) 5.3H, Basophils (%) (Auto) 0.9, Sodium Level 139, Potassium Level 4.8, Chloride Level 104, Carbon Dioxide Level 22, Anion Gap 13, Blood Urea Nitrogen 49H, Creatinine 7.6H, Estimat Glomerular Filtration Rate 6.8, Glucose Level 86, Calcium Level 9.1, Total Bilirubin 0.4, Aspartate Amino Transf (AST/SGOT) 30, Alanine Aminotransferase (ALT/SGPT) 35, Alkaline Phosphatase 91, Total Protein 6.8, Albumin 2.8L, Globulin 4.0, Albumin/Globulin Ratio 0.7L Current Medications Medications (Trade) Dose Ordered Sig/Josefina Route PRN Reason Start Time Stop Time Status Last Admin Dose Admin Amiodarone HCl (Cordarone) 200 mg BID ORAL 02/21/20 09:00 05/21/20 08:59 02/22/20 17:39 Amlodipine Besylate (Norvasc) 5 mg DAILY ORAL 02/21/20 09:00 03/22/20 08:59 02/22/20 09:32 Dextrose (Dextrose 50%) 25 ml Q30M PRN IV Hypoglycemia 02/20/20 19:00 05/20/20 18:59 Dextrose (Dextrose 50%) 50 ml Q30M PRN IV Hypoglycemia 02/20/20 19:00 05/20/20 18:59 Finasteride (Proscar) 5 mg DAILY ORAL 02/21/20 09:00 05/21/20 08:59 02/23/20 08:55 Heparin Sodium (Porcine) (Heparin 5000 units/ml) 5,000 units EVERY 12 HOURS SUBQ 02/20/20 21:00 04/05/20 20:59 02/23/20 09:23 Hydroxychloroquine Sulfate (Plaquenil) 200 mg BID ORAL 02/21/20 18:00 02/25/20 09:01 02/23/20 08:55 Levothyroxine Sodium (Synthroid) 50 mcg DAILY IV 02/21/20 09:00 03/22/20 08:59 02/23/20 08:55 Piperacillin Sod/ Tazobactam Sod 2.25 gm/Sodium Chloride 110 ml @ 220 mls/hr Q8HR IVPB 02/20/20 22:00 02/27/20 21:59 02/23/20 05:39 Sevelamer Carbonate (Renvela) 800 mg TID ORAL 02/21/20 09:00 05/21/20 08:59 02/23/20 08:55 Vancomycin HCl (Vanco rx to dose) 1 ea DAILY PRN MISC Per rx protocol 02/20/20 21:15 03/21/20 21:14 Hiro Mendoza MD Feb 23, 2020 11:36
--- NOTE | 2020-02-23 11:47 | Nephrology Progress Note ---
Assessment/Plan Plan #ESRD on HD TTS via LUE AVF- missed HD on 02/19 #sepsis, cough, fevers, r/o covid 19 #Toxic metabolic encephalopathy # Parkinson's disease #HTN # SSS s/p PPM #hypothyroidism - nxt HD tomorrow - monday - ID and pulm consulted - r/o COVID - abx per ID- vanco, zosyn, Plaquenil - check PTH/vitD-> pending - sevelamer 800mg TID - check ferritin/iron panel-. adequate - continue amlodipine 5mg daily - continue levothyroxine 50 mcg daily - continue amiodarone 200mg daily Subjective Subjective Plan for HD today BP stable Labs reviewed Objective Objective Last 24 Hour Vital Signs Date Time Temp Pulse Resp B/P (MAP) Pulse Ox O2 Delivery O2 Flow Rate FiO2 02/23/20 09:00 Room Air 02/23/20 09:00 70 144/72 02/23/20 08:00 70 02/23/20 08:00 97.0 70 16 144/72 (96) 97 02/23/20 04:00 70 02/23/20 04:00 97.7 70 16 147/70 (95) 95 02/23/20 00:00 70 02/23/20 00:00 97.7 70 16 141/70 (93) 95 02/22/20 21:00 Room Air 02/22/20 20:00 97.5 70 16 137/68 (91) 96 02/22/20 20:00 70 02/22/20 16:00 97.7 70 16 147/62 (90) 97 02/22/20 16:00 70 02/22/20 12:00 97.7 71 17 149/73 (98) 98 02/22/20 12:00 70 Intake and Output 02/22/20 02/23/20 19:00 07:00 Intake Total 480 ml Balance 480 ml Intake Oral 480 ml Laboratory Tests 02/23/20 05:25: White Blood Count 9.4, Red Blood Count 4.11L, Hemoglobin 12.1L, Hematocrit 37.6L , Mean Corpuscular Volume 91, Mean Corpuscular Hemoglobin 29.4, Mean Corpuscular Hemoglobin Concent 32.2, Red Cell Distribution Width 14.5, Platelet Count 264, Mean Platelet Volume 7.0, Neutrophils (%) (Auto) 69.5, Lymphocytes (% ) (Auto) 14.5L, Monocytes (%) (Auto) 9.8, Eosinophils (%) (Auto) 5.3H, Basophils (%) (Auto) 0.9, Sodium Level 139, Potassium Level 4.8, Chloride Level 104, Carbon Dioxide Level 22, Anion Gap 13, Blood Urea Nitrogen 49H, Creatinine 7.6H, Estimat Glomerular Filtration Rate 6.8, Glucose Level 86, Calcium Level 9.1, Total Bilirubin 0.4, Aspartate Amino Transf (AST/SGOT) 30, Alanine Aminotransferase (ALT/SGPT) 35, Alkaline Phosphatase 91, Total Protein 6.8, Albumin 2.8L, Globulin 4.0, Albumin/Globulin Ratio 0.7L Height (Feet): 5 Height (Inches): 7.00 Weight (Pounds): 132 Tiffanie Jim M.D. Feb 23, 2020 11:47
[2020-02-23 12:00] VITALS: BP 149/67
[2020-02-23 16:00] VITALS: BP 116/64
--- NOTE | 2020-02-23 16:57 | Cardiology Progress Note ---
Assessment/Plan Status: stable Assessment/Plan Assessment/Plan: #ESRD on HD TTS via LUE AVF- missed HD on 02/19 #sepsis, cough, fevers, r/o covid 19 #Toxic metabolic encephalopathy # Parkinson's disease #HTN # SSS s/p PPM #hypothyroidism Monitor on telemetry for prolonged QT Daily EKG Continue Hydroxychloroquine Avoid Azithromycin at this time, goal QTC <450 - ok to start at that time and monitor QTC for two days Monitor and replete electrolytes Continue beta blockers Continue amlodipine for hypertension Continue amiodarone but d/c if QTC >500 Initiate anticoagulation for AFIB given elevated CHADS score, eliquis 2.5 mg BID Echocardiogram re elevated BNP Closely monitor respiratory status, daily CXR, daily troponin Subjective Cardiovascular: Reports: no symptoms Respiratory: Reports: no symptoms Gastrointestinal/Abdominal: Reports: no symptoms Genitourinary: Reports: no symptoms Subjective No acute events, remains afebrile and in no distress, no complaints, tolerating PO, no fevers. Objective Last 24 Hour Vital Signs Date Time Temp Pulse Resp B/P (MAP) Pulse Ox O2 Delivery O2 Flow Rate FiO2 02/23/20 16:00 70 02/23/20 12:00 97.0 70 16 149/67 (94) 96 02/23/20 12:00 70 02/23/20 09:00 Room Air 02/23/20 09:00 70 144/72 02/23/20 08:00 70 02/23/20 08:00 97.0 70 16 144/72 (96) 97 02/23/20 04:00 70 02/23/20 04:00 97.7 70 16 147/70 (95) 95 02/23/20 00:00 70 02/23/20 00:00 97.7 70 16 141/70 (93) 95 02/22/20 21:00 Room Air 02/22/20 20:00 97.5 70 16 137/68 (91) 96 02/22/20 20:00 70 General Appearance: no apparent distress, alert EENT: PERRL/EOMI, normal ENT inspection, TMs normal, pharynx normal Neck: non-tender, normal alignment, supple, normal inspection, no JVD Rhythm: NSR Cardiovascular: normal peripheral pulses, normal rate, regular rhythm Respiratory/Chest: chest wall non-tender, lungs clear, normal breath sounds, no respiratory distress, no accessory muscle use, respiratory distress Abdomen: normal bowel sounds, non tender, soft, no organomegaly, no mass Extremities: normal range of motion, non-tender, normal inspection, no calf tenderness, no swelling 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, no motor/sensory deficits Intake and Output 02/22/20 02/23/20 19:00 07:00 Intake Total 480 ml Balance 480 ml Intake Oral 480 ml Laboratory Tests Test 02/23/20 05:25 White Blood Count 9.4 K/UL (4.8-10.8) Red Blood Count 4.11 M/UL (4.70-6.10) L Hemoglobin 12.1 G/DL (14.2-18.0) L Hematocrit 37.6 % (42.0-52.0) L Mean Corpuscular Volume 91 FL (80-99) Mean Corpuscular Hemoglobin 29.4 PG (27.0-31.0) Mean Corpuscular Hemoglobin Concent 32.2 G/DL (32.0-36.0) Red Cell Distribution Width 14.5 % (11.6-14.8) Platelet Count 264 K/UL (150-450) Mean Platelet Volume 7.0 FL (6.5-10.1) Neutrophils (%) (Auto) 69.5 % (45.0-75.0) Lymphocytes (%) (Auto) 14.5 % (20.0-45.0) L Monocytes (%) (Auto) 9.8 % (1.0-10.0) Eosinophils (%) (Auto) 5.3 % (0.0-3.0) H Basophils (%) (Auto) 0.9 % (0.0-2.0) Sodium Level 139 MMOL/L (136-145) Potassium Level 4.8 MMOL/L (3.5-5.1) Chloride Level 104 MMOL/L (98-107) Carbon Dioxide Level 22 MMOL/L (21-32) Anion Gap 13 mmol/L (5-15) Blood Urea Nitrogen 49 mg/dL (7-18) H Creatinine 7.6 MG/DL (0.55-1.30) H Estimat Glomerular Filtration Rate 6.8 mL/min (>60) Glucose Level 86 MG/DL (74-106) Calcium Level 9.1 MG/DL (8.5-10.1) Total Bilirubin 0.4 MG/DL (0.2-1.0) Aspartate Amino Transf (AST/SGOT) 30 U/L (15-37) Alanine Aminotransferase (ALT/SGPT) 35 U/L (12-78) Alkaline Phosphatase 91 U/L (46-116) Total Protein 6.8 G/DL (6.4-8.2) Albumin 2.8 G/DL (3.4-5.0) L Globulin 4.0 g/dL Albumin/Globulin Ratio 0.7 (1.0-2.7) L Microbiology Date/Time Source Procedure Growth Status 02/20/20 17:00 Blood Blood Culture - Preliminary NO GROWTH AFTER 48 HOURS Resulted 02/20/20 19:00 Nasal Nares - Final Complete 02/20/20 19:00 Nasal Nares - Final Complete Ricky Maciel MD Feb 23, 2020 16:57
--- NOTE | 2020-02-23 19:15 | NUR ---
NURSE NOTES: Received report from Carmencita Bahena RN. Pt in stable condition, will continue close monitoring and plan of care.
--- NOTE | 2020-02-23 19:16 | NUR ---
HAND-OFF: Report given to TOMMY Roberts. Endorsed plan of care.
--- NOTE | 2020-02-23 19:56 | Neurology Progress Note ---
Interim History Interim History ROS Limited/Unobtainable: Yes Interim History more alert, interacting Objective Physical Exam Last Vital Signs Date Time Temp Pulse Resp B/P (MAP) Pulse Ox O2 Delivery O2 Flow Rate FiO2 02/23/20 16:00 96.8 114 16 116/64 (81) 95 02/23/20 09:00 Room Air Laboratory Tests Test 02/23/20 05:25 White Blood Count 9.4 K/UL (4.8-10.8) Red Blood Count 4.11 M/UL (4.70-6.10) L Hemoglobin 12.1 G/DL (14.2-18.0) L Hematocrit 37.6 % (42.0-52.0) L Mean Corpuscular Volume 91 FL (80-99) Mean Corpuscular Hemoglobin 29.4 PG (27.0-31.0) Mean Corpuscular Hemoglobin Concent 32.2 G/DL (32.0-36.0) Red Cell Distribution Width 14.5 % (11.6-14.8) Platelet Count 264 K/UL (150-450) Mean Platelet Volume 7.0 FL (6.5-10.1) Neutrophils (%) (Auto) 69.5 % (45.0-75.0) Lymphocytes (%) (Auto) 14.5 % (20.0-45.0) L Monocytes (%) (Auto) 9.8 % (1.0-10.0) Eosinophils (%) (Auto) 5.3 % (0.0-3.0) H Basophils (%) (Auto) 0.9 % (0.0-2.0) Sodium Level 139 MMOL/L (136-145) Potassium Level 4.8 MMOL/L (3.5-5.1) Chloride Level 104 MMOL/L (98-107) Carbon Dioxide Level 22 MMOL/L (21-32) Anion Gap 13 mmol/L (5-15) Blood Urea Nitrogen 49 mg/dL (7-18) H Creatinine 7.6 MG/DL (0.55-1.30) H Estimat Glomerular Filtration Rate 6.8 mL/min (>60) Glucose Level 86 MG/DL (74-106) Calcium Level 9.1 MG/DL (8.5-10.1) Total Bilirubin 0.4 MG/DL (0.2-1.0) Aspartate Amino Transf (AST/SGOT) 30 U/L (15-37) Alanine Aminotransferase (ALT/SGPT) 35 U/L (12-78) Alkaline Phosphatase 91 U/L (46-116) Total Protein 6.8 G/DL (6.4-8.2) Albumin 2.8 G/DL (3.4-5.0) L Globulin 4.0 g/dL Albumin/Globulin Ratio 0.7 (1.0-2.7) L General: well developed Head: normocophalic Neck: no rigidity EENT: benign Neurologic Exam Mental Status: alert Cranial Nerves III, IV, : EOMI Objective calm, no agitation ao x 2, non focal Impression/Recommendations Problems: (1) Pacemaker (2) Fever (3) Sepsis (4) ESRD (end stage renal disease) (5) HTN (hypertension) (6) Suspected 2019 novel coronavirus infection Status: stable Diagnostic Impression Acute encephalopathy likely metabolic Parkinsonism Recommendations Delirium precautions atb per primary FU COVID COnt HD Defer starting PD meds until back to baseline mentation Javier Rasheed MD Feb 23, 2020 19:56
[2020-02-23 20:00] VITALS: BP 132/63
[2020-02-24] VITALS: BP 123/70
[2020-02-24] MEDS ORDERED: Vancomycin 750mg/D5W 275ml IVPB ONE ×2
[2020-02-24 04:00] VITALS: BP 121/69
[2020-02-24] MEDS: Zosyn 2.25gm in NS 110ML IVPB SCH ×2 (06:00→13:31)
--- NOTE | 2020-02-24 07:42 | NUR ---
HAND-OFF: Report given to Zoey Klein RN. Pt in stable condition. Endorsed plan of care.
[2020-02-24 08:00] VITALS: BP 119/66
--- NOTE | 2020-02-24 08:17 | NUR ---
NURSE NOTES: MESSAGE LEFT TO DR. CARNEY TO REPORT NEGATIVE COVID RESULT. AWAITING CALL BACK.
--- NOTE | 2020-02-24 08:23 | NUR ---
NURSE NOTES: PER DR. CARNEY MAY REMOVE FROM COVID ISOLATION.
--- NOTE | 2020-02-24 09:02 | Neurology Progress Note ---
Interim History Interim History ROS Limited/Unobtainable: Yes Interim History no acute events Objective Physical Exam Last Vital Signs Date Time Temp Pulse Resp B/P (MAP) Pulse Ox O2 Delivery O2 Flow Rate FiO2 02/24/20 04:00 70 02/24/20 04:00 98.0 18 121/69 (86) 96 02/23/20 21:00 Room Air Laboratory Tests Test 02/23/20 21:15 Random Vancomycin Level 19.4 ug/mL General: well developed Head: normocophalic Neck: no rigidity EENT: benign Neurologic Exam Mental Status: alert Cranial Nerves III, IV, : EOMI Objective calm, no agitation ao x 2, non focal Impression/Recommendations Problems: (1) Pacemaker (2) Fever (3) Sepsis (4) ESRD (end stage renal disease) (5) HTN (hypertension) (6) Suspected 2019 novel coronavirus infection Status: stable Diagnostic Impression Acute encephalopathy likely metabolic Parkinsonism Recommendations Delirium precautions atb per primary FU COVID COnt HD Defer starting PD meds until back to baseline mentation Javier Rasheed MD Feb 24, 2020 09:02
[2020-02-24] MEDS: Amiodarone 200mg tab ORAL SCH ×2 (09:28→18:13)
[2020-02-24] MEDS: Heparin 5000 units/ml inj SUBQ SCH (09:29)
--- NOTE | 2020-02-24 09:39 | Nephrology Progress Note ---
Assessment/Plan Plan #ESRD on HD TTS via LUE AVF- missed HD on 02/19 #sepsis, cough, fevers, r/o covid 19 #Toxic metabolic encephalopathy # Parkinson's disease #HTN # SSS s/p PPM #hypothyroidism - nxt HD tomorrow - monday - ID and pulm consulted - r/o COVID-. neg - abx per ID- vanco, zosyn, - check PTH/vitD-> pending - sevelamer 800mg TID - check ferritin/iron panel-. adequate - continue amlodipine 5mg daily - continue levothyroxine 50 mcg daily - continue amiodarone 200mg daily Subjective Subjective s/p HD yesterday COVID neg BP stable Labs reviewed Objective Objective Last 24 Hour Vital Signs Date Time Temp Pulse Resp B/P (MAP) Pulse Ox O2 Delivery O2 Flow Rate FiO2 02/24/20 09:28 60 119/66 02/24/20 08:00 97.2 60 18 119/66 (83) 98 02/24/20 04:00 70 02/24/20 04:00 98.0 77 18 121/69 (86) 96 02/24/20 00:00 70 02/24/20 00:00 97.4 77 18 123/70 (87) 95 02/23/20 21:00 Room Air 02/23/20 20:00 70 02/23/20 20:00 97.2 83 17 132/63 (86) 95 02/23/20 16:00 96.8 114 16 116/64 (81) 95 02/23/20 16:00 70 02/23/20 12:00 97.0 70 16 149/67 (94) 96 02/23/20 12:00 70 Intake and Output 02/23/20 02/24/20 19:00 07:00 Intake Total 400 ml Output Total 3000 ml Balance -3000 ml 400 ml Intake Oral 400 ml Output Hemodialysis UF 3000 ml Laboratory Tests 02/23/20 21:15: Random Vancomycin Level 19.4 Height (Feet): 5 Height (Inches): 7.00 Weight (Pounds): 132 Tiffanie Jim M.D. Feb 24, 2020 09:39
--- NOTE | 2020-02-24 09:49 | NUR ---
CASE MANAGEMENT:REVIEW 02/24/20 SI: SEPSIS. PNA COVID 19 NOT DETECTED 97.2 60 18 119/66 98% ON RA H/H-12.2/37.6 BUN+49 CR+7.6 IS: IV ZOSYN Q8HRS PLAQUENIL PO BID NORVASC PO QD RENVELA PO TID AMIODARONE PO BID IV SYNTHROID QD HEPARIN SQ Q12 : TELEMETRY STATUS DCP: FROM [facility] PLAN: REFER TO [facility] T: [phone] PER MD'S ORDER
--- NOTE | 2020-02-24 10:15 | NUR ---
*-*DISCHARGE PLANNING*-* PATIENT HAS BEEN REFERRED TO: [facility] P: [phone] F: [phone] ~~~~~~~~~~~~~CLINICALS FAXED~~~~~~~~~~~~~~~~~~
--- NOTE | 2020-02-24 10:33 | Pulmonology Progress Note ---
Assessment/Plan Assessment/Plan IMPRESSION: 1. Fever, high-risk for COVID-19. Results however negative 2. ESRD on dialysis. 3. Leukocytosis. IMproved. 4. Elevated D-dimer. 5. Parkinson's. 6. Permanent pacemaker. DISCUSSION: Continue empiric antibiotics. 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 Current saturations are adequate. Hiro Mendoza M.D. Subjective Interval Events: None new Constitutional: Reports: no symptoms HEENT: Repors: no symptoms Respiratory: Reports: no symptoms Cardiovascular: Reports: no symptoms Gastrointestinal/Abdominal: Reports: no symptoms Allergies: Coded Allergies: LATEX (Verified Allergy, Unknown, 02/20/20) Uncoded Allergies: NSAID (Allergy, Unknown, 02/20/20) Objective Last 24 Hour Vital Signs Date Time Temp Pulse Resp B/P (MAP) Pulse Ox O2 Delivery O2 Flow Rate FiO2 02/24/20 09:28 60 119/66 02/24/20 09:00 Room Air 02/24/20 08:00 70 02/24/20 08:00 97.2 60 18 119/66 (83) 98 02/24/20 04:00 70 02/24/20 04:00 98.0 77 18 121/69 (86) 96 02/24/20 00:00 70 02/24/20 00:00 97.4 77 18 123/70 (87) 95 02/23/20 21:00 Room Air 02/23/20 20:00 70 02/23/20 20:00 97.2 83 17 132/63 (86) 95 02/23/20 16:00 96.8 114 16 116/64 (81) 95 02/23/20 16:00 70 02/23/20 12:00 97.0 70 16 149/67 (94) 96 02/23/20 12:00 70 Intake and Output 02/23/20 02/24/20 19:00 07:00 Intake Total 400 ml Output Total 3000 ml Balance -3000 ml 400 ml Intake Oral 400 ml Output Hemodialysis UF 3000 ml General Appearance: no acute distress HEENT: normocephalic Respiratory/Chest: chest wall non-tender, lungs clear Cardiovascular: normal peripheral pulses Abdomen: normal bowel sounds Laboratory Tests 02/23/20 21:15: Random Vancomycin Level 19.4 Current Medications Medications (Trade) Dose Ordered Sig/Josefina Route PRN Reason Start Time Stop Time Status Last Admin Dose Admin Amiodarone HCl (Cordarone) 200 mg BID ORAL 02/21/20 09:00 05/21/20 08:59 02/24/20 09:28 Amlodipine Besylate (Norvasc) 5 mg DAILY ORAL 02/21/20 09:00 03/22/20 08:59 02/24/20 09:28 Dextrose (Dextrose 50%) 25 ml Q30M PRN IV Hypoglycemia 02/20/20 19:00 05/20/20 18:59 Dextrose (Dextrose 50%) 50 ml Q30M PRN IV Hypoglycemia 02/20/20 19:00 05/20/20 18:59 Finasteride (Proscar) 5 mg DAILY ORAL 02/21/20 09:00 05/21/20 08:59 02/24/20 09:28 Heparin Sodium (Porcine) (Heparin 5000 units/ml) 5,000 units EVERY 12 HOURS SUBQ 02/20/20 21:00 04/05/20 20:59 02/24/20 09:29 Hydroxychloroquine Sulfate (Plaquenil) 200 mg BID ORAL 02/21/20 18:00 02/25/20 09:01 02/24/20 09:28 Levothyroxine Sodium (Synthroid) 50 mcg DAILY IV 02/21/20 09:00 03/22/20 08:59 02/24/20 09:28 Piperacillin Sod/ Tazobactam Sod 2.25 gm/Sodium Chloride 110 ml @ 220 mls/hr Q8HR IVPB 02/20/20 22:00 02/27/20 21:59 02/24/20 06:00 Sevelamer Carbonate (Renvela) 800 mg TID ORAL 02/21/20 09:00 05/21/20 08:59 02/24/20 09:29 Vancomycin HCl (Vanco rx to dose) 1 ea DAILY PRN MISC Per rx protocol 02/20/20 21:15 03/21/20 21:14 Hiro Mendoza MD Feb 24, 2020 10:33
--- NOTE | 2020-02-24 10:40 | NUR ---
NURSE NOTES: PATIENT STABLE, ALERT. RUBY. NO COMPLAINTS AND NO S/SX OF DISTRESS. RR EVEN AND UNLABORED ON RA. SIDE RAILS UPX2, CALL LIGHT WITHIN REACH, BED LOW AND LOCKED. WILL CONTINUE TO MONITOR.
[2020-02-24 11:07] LABS: BASOPHILS % (AUTO) 1.1 % (0.0-2.0); EOSINOPHILS % (AUTO) 3.5 % (0.0-3.0); HEMATOCRIT 38.9 % (42.0-52.0); HEMOGLOBIN 12.5 G/DL (14.2-18.0); LYMPHOCYTES % (AUTO) 11.5 % (20.0-45.0); MEAN CORPUSCULAR VOLUME 92 FL (80-99); MONOCYTES % (AUTO) 9.4 % (1.0-10.0); NEUTROPHILS % (AUTO) 74.4 % (45.0-75.0); PLATELET COUNT 238 K/UL (150-450); RED BLOOD COUNT 4.24 M/UL (4.70-6.10); RED CELL DISTRIBUTION WIDTH 14.5 % (11.6-14.8); WHITE BLOOD COUNT 8.5 K/UL (4.8-10.8)
[2020-02-24 11:09] LABS: ANION GAP 9 mmol/L (5-15); BLOOD UREA NITROGEN 33 mg/dL (7-18); CALCIUM 8.9 MG/DL (8.5-10.1); CARBON DIOXIDE 29 MMOL/L (21-32); CHLORIDE 102 MMOL/L (98-107); CREATININE 6.2 MG/DL (0.55-1.30); SODIUM 140 MMOL/L (136-145)
--- NOTE | 2020-02-24 11:19 | Cardiology Progress Note ---
Assessment/Plan Status: stable Assessment/Plan Assessment/Plan: #ESRD on HD TTS via LUE AVF- missed HD on 02/19 #sepsis, cough, fevers, r/o covid 19 #Toxic metabolic encephalopathy # Parkinson's disease #HTN # SSS s/p PPM #hypothyroidism Monitor on telemetry for prolonged QT Daily EKG Continue Hydroxychloroquine Avoid Azithromycin at this time, goal QTC <450 - ok to start at that time and monitor QTC for two days Monitor and replete electrolytes Continue beta blockers Continue amlodipine for hypertension Continue amiodarone but d/c if QTC >500 Initiate anticoagulation for AFIB given elevated CHADS score, eliquis 2.5 mg BID Echocardiogram re elevated BNP Closely monitor respiratory status, daily CXR, daily troponin Subjective Subjective No acute events, remains afebrile and in no distress, no complaints, tolerating PO, no fevers. Objective Last 24 Hour Vital Signs Date Time Temp Pulse Resp B/P (MAP) Pulse Ox O2 Delivery O2 Flow Rate FiO2 02/24/20 09:28 60 119/66 02/24/20 09:00 Room Air 02/24/20 08:00 70 02/24/20 08:00 97.2 60 18 119/66 (83) 98 02/24/20 04:00 70 02/24/20 04:00 98.0 77 18 121/69 (86) 96 02/24/20 00:00 70 02/24/20 00:00 97.4 77 18 123/70 (87) 95 02/23/20 21:00 Room Air 02/23/20 20:00 70 02/23/20 20:00 97.2 83 17 132/63 (86) 95 02/23/20 16:00 96.8 114 16 116/64 (81) 95 02/23/20 16:00 70 02/23/20 12:00 97.0 70 16 149/67 (94) 96 02/23/20 12:00 70 General Appearance: no apparent distress, alert EENT: PERRL/EOMI, normal ENT inspection, TMs normal, pharynx normal Neck: non-tender, normal alignment, supple, normal inspection, no JVD Rhythm: NSR Cardiovascular: normal peripheral pulses, normal rate, regular rhythm Respiratory/Chest: chest wall non-tender, lungs clear, normal breath sounds, no respiratory distress, no accessory muscle use Abdomen: normal bowel sounds, non tender, soft, no organomegaly, no mass Extremities: normal range of motion, non-tender, normal inspection, no calf tenderness, no swelling 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, no motor/sensory deficits Intake and Output 02/23/20 02/24/20 19:00 07:00 Intake Total 400 ml Output Total 3000 ml Balance -3000 ml 400 ml Intake Oral 400 ml Output Hemodialysis UF 3000 ml Laboratory Tests Test 02/23/20 21:15 02/24/20 10:35 Random Vancomycin Level 19.4 ug/mL White Blood Count 8.5 K/UL (4.8-10.8) Red Blood Count 4.24 M/UL (4.70-6.10) L Hemoglobin 12.5 G/DL (14.2-18.0) L Hematocrit 38.9 % (42.0-52.0) L Mean Corpuscular Volume 92 FL (80-99) Mean Corpuscular Hemoglobin 29.6 PG (27.0-31.0) Mean Corpuscular Hemoglobin Concent 32.3 G/DL (32.0-36.0) Red Cell Distribution Width 14.5 % (11.6-14.8) Platelet Count 238 K/UL (150-450) Mean Platelet Volume 6.9 FL (6.5-10.1) Neutrophils (%) (Auto) 74.4 % (45.0-75.0) Lymphocytes (%) (Auto) 11.5 % (20.0-45.0) L Monocytes (%) (Auto) 9.4 % (1.0-10.0) Eosinophils (%) (Auto) 3.5 % (0.0-3.0) H Basophils (%) (Auto) 1.1 % (0.0-2.0) Sodium Level 140 MMOL/L (136-145) Potassium Level 4.0 MMOL/L (3.5-5.1) Chloride Level 102 MMOL/L (98-107) Carbon Dioxide Level 29 MMOL/L (21-32) Anion Gap 9 mmol/L (5-15) Blood Urea Nitrogen 33 mg/dL (7-18) H Creatinine 6.2 MG/DL (0.55-1.30) H Estimat Glomerular Filtration Rate 8.6 mL/min (>60) Glucose Level 166 MG/DL (74-106) H Calcium Level 8.9 MG/DL (8.5-10.1) Ricky Maciel MD Feb 24, 2020 11:19
--- NOTE | 2020-02-24 11:26 | General Progress Note ---
Assessment/Plan Status: stable Assessment/Plan: 84-year-old male with PMH of ESRD on HD TTS, Parkinson's disease, HTN, s/p PPM 2 /2 SSS, admitted for cough/fevers 100.5 at [facility], missed HD today, here for COVID r/o, sepsis work up. Possible COVID exposure at [facility]. #Sepsis - resolved #Fevers #Cough #PNA #Acute Toxic Metabolic Encephalopathy - resolved #elevated D-dimer #Sinusitis -cont. inpatient medical management, cardiac monitoring -Likely multifactorial, 2/2 uremia from missed HD and PNA -COVID Negative, d/c droplet precautions -CXR w/ patchy interstitial infiltrates -CT head reviewed, chronic changes, sinusitis -BCx NGTD -Obtain LE US given elevated d-dimer on admission, likely multifactorial, 2/2 sepsis/ESRD, US initially not done due to potential COVID exposure, pt O2 100% RA, COVID has been ruled out at this time -ID, Dr. Villa: d/w ID, will d/c zosyn, vancomycin, hydroxychloroquine, start Augmentin 500mg q daily, doxycycline 100 mg BID for 5 days -Pulm, Dr. Mendoza consulted, recs appreciated #ESRD on HD TTS #Elevated BNP likely 2/2 missed HD -Cont. home sevelamer 800mg TID -PTH WNL -check ferritin/iron panel -HD per nephro -Nephro, Dr. Jim, recs appreciated #SSS s/p PPM #elevated BNP likely 2/2 to above #HTN #h/o afib #Aortic stenosis -cont. to monitor QTc -cont. home amlodipine 5 mg -cont. home amiodarone, d/c if QTc >500 -Eliquis 2.5 BID initiated due to chadsvasq -PT treat/eval -d/w Dr. Maciel, pt may be high fall risk for OAC, may be candidate for watchman procedure -Cardio following: recs appreciated #h/o falls -per , pt has h/o falls -fall precautions -PT treat/eval #Hypothyroidism -TSH 2.971 -cont. home meds, levothyroxine 50 #BPH -cont. home finasteride #Parkinsons Dx #Depression -holding home escitalopram for now -pt not on any meds for PD per medication review -neurology consulted: hold sinemet #IPMN -pt follows w/Dr. Rivero -pt to f/u o/p Dispo: d/c pending PT LICO avery for d/c planning, pt to be d/c [facility] Time spent on encounter: 35 mins, >50% on counseling, coordination of care. Time of note doesn't reflect time of encounter. Subjective Constitutional: Denies: no symptoms, chills, diaphoresis, fever, malaise, weakness, other HEENT: Denies: no symptoms, eye pain, blurred vision, tearing, double vision, ear pain, ear discharge, nose pain, nose congestion, throat pain, throat swelling, mouth pain, mouth swelling, other Cardiovascular: Denies: no symptoms, chest pain, edema, irregular heart rate, lightheadedness, palpitations, syncope, other Respiratory: Denies: no symptoms, cough, orthopnea, shortness of breath, SOB with excertion, SOB at rest, sputum, stridor, wheezing, other Gastrointestinal/Abdominal: Denies: no symptoms, abdomen distended, abdominal pain, black stools, tarry stools, blood in stool, constipated, diarrhea, difficulty swallowing, nausea, poor appetite, poor fluid intake, rectal bleeding , vomiting, other Genitourinary: Denies: no symptoms, burning, discharge, frequency, flank pain, hematuria, incontinence, pain, urgency, other Neurologic/Psychiatric: Denies: no symptoms, anxiety, depressed, emotional problems, headache, numbness, paresthesia, pre-existing deficit, seizure, tingling, tremors, weakness, other Allergies: Coded Allergies: LATEX (Verified Allergy, Unknown, 02/20/20) Uncoded Allergies: NSAID (Allergy, Unknown, 02/20/20) Subjective Follow-up for sepsis now resolved, PNA, acute toxic metabolic encephalopathy resolved after HD, COVID has been ruled out. No acute events overngiht, pt denies f/c, cough, SOB. States he looses balance easily and requires assistance w/ambulation. Objective Last 24 Hour Vital Signs Date Time Temp Pulse Resp B/P (MAP) Pulse Ox O2 Delivery O2 Flow Rate FiO2 02/24/20 09:28 60 119/66 02/24/20 09:00 Room Air 02/24/20 08:00 70 4/6/20 08:00 97.2 60 18 119/66 (83) 98 02/24/20 04:00 70 02/24/20 04:00 98.0 77 18 121/69 (86) 96 02/24/20 00:00 70 02/24/20 00:00 97.4 77 18 123/70 (87) 95 02/23/20 21:00 Room Air 02/23/20 20:00 70 02/23/20 20:00 97.2 83 17 132/63 (86) 95 02/23/20 16:00 96.8 114 16 116/64 (81) 95 02/23/20 16:00 70 02/23/20 12:00 97.0 70 16 149/67 (94) 96 02/23/20 12:00 70 Intake and Output 02/23/20 02/24/20 19:00 07:00 Intake Total 400 ml Output Total 3000 ml Balance -3000 ml 400 ml Intake Oral 400 ml Output Hemodialysis UF 3000 ml Laboratory Tests 02/23/20 21:15: Random Vancomycin Level 19.4 02/24/20 10:35: White Blood Count 8.5, Red Blood Count 4.24L, Hemoglobin 12.5L, Hematocrit 38.9L , Mean Corpuscular Volume 92, Mean Corpuscular Hemoglobin 29.6, Mean Corpuscular Hemoglobin Concent 32.3, Red Cell Distribution Width 14.5, Platelet Count 238, Mean Platelet Volume 6.9, Neutrophils (%) (Auto) 74.4, Lymphocytes (% ) (Auto) 11.5L, Monocytes (%) (Auto) 9.4, Eosinophils (%) (Auto) 3.5H, Basophils (%) (Auto) 1.1, Sodium Level 140, Potassium Level 4.0, Chloride Level 102, Carbon Dioxide Level 29, Anion Gap 9, Blood Urea Nitrogen 33H, Creatinine 6.2H, Estimat Glomerular Filtration Rate 8.6, Glucose Level 166H, Calcium Level 8.9 Height (Feet): 5 Height (Inches): 7.00 Weight (Pounds): 133 Objective General: NAD, A&O x 4, awake, alert, sitting up in bed comfortably HEENT: NCAT, EOMi, MMM CV: RRR, 2/6 systolic MMR Pulm: CTAB, No wheezes, rhonchi, or rales, no accessory muscle usage or conversational dyspnea GI: Soft, nontender, nondistended, bowel sounds present Ext: No lower extremity edema bilaterally, LUE fistula +bruit Skin: no rashes lesions or ulcers, PPM noted in right upper chest wall Demarcus Cottrell M.D. Feb 24, 2020 11:26
[2020-02-24 12:00] VITALS: BP 129/62
--- NOTE | 2020-02-24 13:40 | Diagnostic Imaging Report ---
Indication: Leg pain Technique: Grayscale and duplex images of the bilateral lower extremity veins Comparison: None Findings: Bilaterally, grayscale and duplex images demonstrate no evidence of intraluminal thrombus. Normal phasic Doppler waveforms, demonstrating normal augmentation response and no evidence of valvular insufficiency. Greater saphenous vein(s) and tibial veins are patent. Normal compressibility. Impression: Negative for evidence of lower extremity deep venous thrombosis bilaterally
--- NOTE | 2020-02-24 14:32 | NUR ---
P.T Note P.T evaluation completed and tx initiated. Please refer to P.T evaluation for current functional status. Pt is alert, O x 4 , pleasant and cooperative. Pt had no c/o pain but reports c/o generalized weakness and fatigue. Pt currently requires MIN A X 1 for bed mobility and transfers. Pt able to ambulate 20 ft using the FWW however needed MIN A X 1 to maintain ambulatory balance. Pt is at high fall risk attributed to generalized weakness. Recommend SNF for further rehab intervention at [facility]. Pt is cleared for OOB activities with nursing assist using the FWW. Thank you for this referral.
--- NOTE | 2020-02-24 14:42 | NUR ---
NURSE NOTES:handoff received from TOMMY Greer
--- NOTE | 2020-02-24 14:43 | NUR ---
NURSE NOTES:Called Dr Isaac office and left a message to notify that PT recommends patient be discharged to SNF as patient is very weak. Also PT wanted to confirm that patient can be discharged on anticoagulants if patient is high fall risk.
--- NOTE | 2020-02-24 14:43 | NUR ---
HAND-OFF: Report given to Jovon Linares RN. Patient stable. Endorsed that Dr. Cottrell needs to be informed of pt's PT assessment.
[2020-02-24] MEDS ORDERED: AUGMENTIN 500-1 EACH ORAL (15:05)
[2020-02-24] MEDS ORDERED: ASPIRIN325 MG ORAL (15:05)
[2020-02-24] MEDS ORDERED: DOXYCYCLINE HY100 M6 PO (15:05)
--- NOTE | 2020-02-24 15:08 | Discharge Instructions ---
Discharge Instructions Discharge Instructions Follow Up Orders f/u with PCP, truck driver helper as o/p for ASA. Dr. Maciel or your choice truck driver helper. For Congestive Heart Failure Reminder Report to your physician any weight gain of 5 pounds or more in one week. Demarcus Cottrell M.D. Feb 24, 2020 15:08
--- NOTE | 2020-02-24 15:09 | Discharge Summary ---
Discharge Summary Hospital Course Date of Admission Feb 20, 2020 at 17:58 Date of Discharge Admitting Diagnosis respiratory illness, possible COVID 19 HPI Jt Harden is a 84 year old male who was admitted on Feb 20, 2020 at 17:58 for Respiratory Illness, Possible Covid 19 Hospital Course 84-year-old male with PMH of ESRD on HD TTS, Parkinson's disease, HTN, s/p PPM 2 /2 SSS, admitted for cough/fevers 100.5 at [facility], missed HD, here for sepsis work up and COVID r/o given possible COVID exposure at [facility]. [facility] showed patch[facility] infiltrates. CT head on admission was negative for acute process. Patient's mentation improved after dialysis and antibiotics. Patient was treated with Zosyn, vancomycin and hydroxychloroquine with improvement. COVID negative. Discussed with ID given improvement of symptoms, patient to be DC'd on Augmentin and doxycycline for treatment of HCAP for 5 more days. Cardio consulted, pt with high chadsvasc, fall risk, pt to be d/c on full dose ASA w/f/ u w/physicist acoustics as o/p. Pt to f/u w/surgeon Dr. Salinas for f/u for IPMN. #Sepsis - resolved #Fevers #Cough #PNA #Acute Toxic Metabolic Encephalopathy - resolved #elevated D-dimer #Sinusitis #ESRD on HD TTS #Elevated BNP likely 2/2 missed HD #SSS s/p PPM #elevated BNP likely 2/2 to above #HTN #h/o afib #Aortic stenosis #h/o falls #Hypothyroidism #BPH #Parkinsons Dx #Depression #IPMN D/c planning >30 mins. Discharge Condition Upon Discharge: stable Discharge Vital Signs Last Vital Signs Date Time Temp Pulse Resp B/P (MAP) Pulse Ox O2 Delivery O2 Flow Rate FiO2 02/24/20 12:00 70 02/24/20 12:00 98.2 20 129/62 (84) 97 02/24/20 09:00 Room Air Discharge Disposition Patient was discharged to [facility] Demarcus Cottrell M.D. Feb 24, 2020 15:09
--- NOTE | 2020-02-24 15:28 | NUR ---
DISCHARGE PLANNING RECEIVED CALL FROM DR BROWN REQUESTING PATIENT DISCHARGE TO [facility] SIDE PATIENT IS FROM [facility] FAXED CLINICALS TO [facility] T~[phone] CALLED AND SPOKE WITH JULIO CÉSAR WHO STATED THEY CAN ACCEPT PATIENT TO ROOM 20B WAITING FOR CLINICALS TO BE REVIEWED
[2020-02-24 16:00] VITALS: BP 127/59
--- NOTE | 2020-02-24 16:22 | NUR ---
DISCHARGE PLANNED PATIENT HAS BEEN ACCEPTED TO [facility] (SNF) RM #20B SKILLED T: [phone] FOR NURSE TO NURSE REPORT [facility] HAS BEEN ARRANGED FOR [address] [employer]PERIENCE SPOKE WITH PATIENT'S , BLAKE GUALLPA, AND SHE IS IN AGREEMENT WITH DISCHARGE PLAN
--- NOTE | 2020-02-24 16:35 | NUR ---
NURSE NOTES:Called [facility] and spoke to Thalia to give report on patient.
--- NOTE | 2020-02-24 17:38 | NUR ---
NURSE NOTES: patient swabs taken to lab for MRSA protocol as patient is on dialysis.
--- NOTE | 2020-02-24 19:43 | NUR ---
NURSE NOTES:Patient discharged and left with EMS, belongings list signed by patient. IV removed, no bleeding noted. patient left in gurney, stable. Discharge packet sent with patient.
[2020-02-24] MEDS ORDERED: Doxycycline Monohydrate 100mg ORAL SCH (21:00)
== END 2020-02-24 19:00 | DRG 871 ==
LOC: EDBD 16:09 → EMR 16:30 → 2E 17:58 → EDBEDREQ 18:07
DX: A41.9 Sepsis, unspecified organism (principal); J18.9 Pneumonia, unspecified organism; N18.6 End stage renal disease; G93.41 Metabolic encephalopathy; I12.0 Hypertensive chronic kidney disease with stage 5 chronic kidney disease or end stage renal disease; G20 Parkinson's disease; Z95.0 Presence of cardiac pacemaker; Z88.6 Allergy status to analgesic agent; Z91.040 Latex allergy status; Z99.2 Dependence on renal dialysis; E03.9 Hypothyroidism, unspecified; N40.0 Benign prostatic hyperplasia without lower urinary tract symptoms; D64.9 Anemia, unspecified; I35.0 Nonrheumatic aortic (valve) stenosis; J32.9 Chronic sinusitis, unspecified
CPT/HCPCS: 36415; 70450; 71045; 80048; 80053; 80202; 82306; 82728; 83540; 83550; 83605; 83880; 83970; 84443; 84484; 85025; 85379; 86706; 86710; 87040; 87081; 87635; 93005; 93970; 99285

== ENCOUNTER 2020-04-30 19:40 | Emergency (ER) | payer MEDICARE, MEDICAID ==
[~2020-04-30] VITALS: Ht 165.1 cm; Wt 60.8 kg
[~2020-04-30 19:40] MED LIST: AFRIN NASAL SPR30 ML NASAL; AMIODARONE HCL100 MG ORAL; AMLODIPINE-ATO1 EAC1 ORAL; ASPIRIN325 MG ORAL; AUGMENTIN 500-1 EACH ORAL; BISACODYL10 M1 RC; DEPAKOTE500 MG PO; DOXYCYCLINE HY100 M6 PO; FINASTERIDE5 MG ORAL; IPRATROPIU0.2 MG/1 M HHN; LEVOTHYROXINE175 MCG ORAL; MAPAP325 M1 PO; MILK OF MA400 MG/51 ORAL; NEPHROVITE1 TAB ORAL; OXANDROLONE2.5 MG PO; POLYETHYLENE GL17 GM ORAL; RENVELA0.8 GM ORAL; VITAMIN D33000 UNI1 PO
[2020-04-30 19:45] VITALS: BP 176/59
--- NOTE | 2020-04-30 21:49 | Emergency Room Report ---
History of Present Illness General Chief Complaint: General Complaint Present Illness HPI Disclaimer: Please note that this report is being documented using [employer] technology. This can lead to erroneous entry secondary to incorrect interpretation by the dictating instrument. HPI: 85-year-old male history of end-stage renal disease on hemodialysis Monday presented for evaluation of left upper extremity dialysis fistula. It was noted to have some minor bleeding earlier today. Patient has no medical complaints. Denies any shortness of breath. He did complete dialysis yesterday. No fever nausea or vomiting. PMH: Hypertension, hemodialysis PSH: Reviewed Social Hx: Currently lives in a [facility] facility Allergies: Coded Allergies: LATEX (Verified Allergy, Unknown, 02/20/20) Uncoded Allergies: NSAID (Allergy, Unknown, 02/20/20) COVID-19 Screening Contact w/high risk pt: No Recent Travel to affected area: No Experienced COVID-19 symptoms?: No COVID-19 symptoms experienced: Fever (T>100.4F or >38C), Cough COVID-19 Testing performed [facility]TURE [facility]KER: [facility] COVID-19 Screening: Negative COVID-19 COVID-19 Testing Source: FACILITY Patient History Reviewed Nursing Documentation: PMH: Agreed; PSxH: Agreed Nursing Documentation-PMH Hx Cardiac Problems: Yes - ERSD PKD AFIB PACEMAKER HYPOTHYROIDISM Hx Hypertension: Yes Hx Pacemaker: Yes Hx Cancer: No Hx Gastrointestinal Problems: No Hx Neurological Problems: No Review of Systems All Other Systems: negative except mentioned in HPI Physical Exam Vital Signs Date Time Temp Pulse Resp B/P (MAP) Pulse Ox O2 Delivery O2 Flow Rate FiO2 04/30/20 19:35 98.2 70 20 169/72 (104) 97 Room Air Sp02 EP Interpretation: reviewed, normal General Appearance: well appearing, no apparent distress Head: normocephalic, atraumatic Eyes: bilateral eye PERRL, bilateral eye EOMI ENT: hearing grossly normal, moist mucus membranes Neck: full range of motion, supple Respiratory: lungs clear, normal breath sounds, no rhonchi, no respiratory distress, no retraction, no wheezing Cardiovascular #1: normal peripheral pulses, regular rate, rhythm, no murmur Gastrointestinal: non tender, soft, non-distended, no guarding Musculoskeletal: other - Left upper extremity with a fistula with thrill, small superficial abrasion noted with scant active bleeding Neurologic: alert, oriented x3, no focal defects Skin: normal color, warm/dry Procedures Additional Procedure Procedure Narrative Wound care Verbal consent obtained from the patient, wound was along dialysis access, a hemostatic dressing was placed on the dialysis access and a dressing applied. Patient tolerated procedure well without complication. Medical Decision Making Diagnostic Impression: Primary Impression: Bleeding from dialysis shunt ER Course Patient presented from [facility] facility secondary to bleeding from his dialysis access. Hemostatic dressing was placed by me. Wound did not require sutures as the blood was oozing and it appeared to be a superficial abrasion. A dressing was applied and patient will be discharged back to his facility for dialysis tomorrow. Vital signs were otherwise stable and he did complete dialysis yesterday. Patient had no complaints in the ER. Last Vital Signs Date Time Temp Pulse Resp B/P (MAP) Pulse Ox O2 Delivery O2 Flow Rate FiO2 04/30/20 19:45 98.7 70 13 176/59 98 Room Air Disposition: SNF Condition: Stable Referrals: Tiffanie Jim M.D. (PCP) Patient Instructions: Dialysis Vascular Access Malfunction Additional Instructions: Please follow-up with your dialysis clinic as scheduled tomorrow. Return for any worsening symptoms or concerns. Joesph Easton M.D. Apr 30, 2020 21:49
[2020-04-30 22:17] VITALS: BP 145/59
[2020-04-30 23:30] VITALS: BP 165/75
== END 2020-04-30 23:30 ==
LOC: EDBD 19:40 → EMR 20:16
DX: T82.49XA Other complication of vascular dialysis catheter, initial encounter (principal); I10 Essential (primary) hypertension; I12.0 Hypertensive chronic kidney disease with stage 5 chronic kidney disease or end stage renal disease; N18.6 End stage renal disease; E03.9 Hypothyroidism, unspecified; I48.91 Unspecified atrial fibrillation; Z99.2 Dependence on renal dialysis
CPT/HCPCS: 99283